=== PATIENT | female | born 1945 | race Caucasian/White ===

== ENCOUNTER 2017-10-22 12:50 | Outpatient (CLI) | payer MEDICARE, BC ==
[2017-10-22] MEDS ORDERED: ISOVUE-370 76%-LOCM 1 ML ONE (15:14)
== END 2017-10-22 12:51 | disposition home or self-care (01) ==
LOC: BICCT 12:50
PROVIDERS: ATTEND Internal Medicine Hematology & Oncology
DX: C22.9 Malignant neoplasm of liver, not specified as primary or secondary (principal); K80.20 Calculus of gallbladder without cholecystitis without obstruction
CPT/HCPCS: 74177; 82565

== ENCOUNTER 2018-07-07 08:46 | Outpatient (CLI) | payer MEDICARE, BC ==
[2018-07-07] MEDS ORDERED: Iopamidol 370 76% 100 ML VIAL ONE (09:00)
[2018-07-07 10:23] LABS: Mean Corpuscular HGB CONC 32.4 g/dL (32.0-36.0); Mean Corpuscular Hemoglobin 31.5 pg (27.0-31.0); Mean Corpuscular Volume 97.2 fL (78.0-98.0); Platelet Count 117 thou/uL (130-400); RBC Distribution Width 14.2 % (11.5-14.5); Red Blood Cell (RBC) Count 4.12 mill/uL (4.20-5.40); White Blood Cell (WBC) Count 5.4 thou/uL (4.8-10.8)
[2018-07-07 10:33] LABS: ALT (SGPT) 13 U/L (8-55); AST (SGOT) 21 U/L (5-34); Albumin 4.2 g/dL (3.4-4.8); Alkaline Phosphatase 115 U/L (40-150); Anion Gap 14 mmol/L (10-20); BUN (Urea Nitrogen) 19 mg/dL (9.8-20.1); Bilirubin, Total 0.4 mg/dL (0.2-1.2); Calc. Creatinine Clearance 0 mL/min (70-130); Calcium 9.9 mg/dL (7.8-10.44); Carbon Dioxide 25 mmol/L (23-31); Chloride 106 mmol/L (98-107); Estimated GFR-MDRD 56; Globulin 2.9 g/dL (2.4-3.5); Glucose 114 mg/dL (83-110); Potassium 5.7 mmol/L (3.5-5.1); Protein, Total 7.1 g/dL (6.0-8.3); Sodium 139 mmol/L (136-145)
--- NOTE | 2018-07-07 14:10 | CT ---
ABDOMEN AND PELVIC CT SCAN WITH IV CONTRAST: Date: 07/07/18 HISTORY: Liver cancer. COMPARISON: 10/22/17. FINDINGS: Small right pleural effusion, slightly larger than on the prior study, with some pleural based parenc hymal changes, probably some atelectasis or pleural thickening. Small hiatal hernia with what appears to be some minimal thickening of the distal esophagus wall, overall stable. Again noted is a large gallstone within the gallbladder, without gallbladder wall thickening or peric holecystic fat stranding. There are some enlarged cesar hepatis lymph nodes, which have heterogeneous attenuation, including some calcifications, although these are stable when compared to the prior josé miguel dy. The visualized pancreas, spleen, and adrenal glands are unremarkable. The kidneys show no hydrone phrosis, or solid or cystic mass. Infraumbilical fat-containing hernia. Prominent panniculus. Colonic diverticulosis without acute diverticulitis. Normal appearing appendix. No retroperitoneal adenopath y. IMPRESSION: Slightly larger right pleural effusion with some pleural based parenchymal changes, probably subsegme ntal atelectasis or chronic change. Stable appearing gallbladder with a large gallstone. Stable appea ring mixed attenuation cesar hepatis adenopathy. Stable small hiatal hernia with some focal thickenin g of the distal esophageal wall. No evidence for metastasis. POS: TPC
== END 2018-07-07 08:47 | disposition home or self-care (01) ==
LOC: SCSCT 08:46
PROVIDERS: ATTEND Internal Medicine Hematology & Oncology
DX: C22.9 Malignant neoplasm of liver, not specified as primary or secondary (principal); J90 Pleural effusion, not elsewhere classified; K80.20 Calculus of gallbladder without cholecystitis without obstruction; R59.0 Localized enlarged lymph nodes; K44.9 Diaphragmatic hernia without obstruction or gangrene; K22.8 Other specified diseases of esophagus; J98.4 Other disorders of lung
CPT/HCPCS: 74177; 80053; 82105; 85027; Q9967

== ENCOUNTER 2018-07-16 12:26 | Outpatient (CLI) | payer MEDICARE, BC ==
[2018-07-16] MEDS ORDERED: Gadobenate Dimeglumine 529 MG/1 ML (20ML VIAL) ONE (15:54)
--- NOTE | 2018-07-16 16:01 | MRI ---
MRI OF THE ABDOMEN WITH AND WITHOUT CONTRAST: INDICATION: History of malignant neoplasm of the liver not specified as primary or secondary. COMPARISON: CT of the abdomen and pelvis dated 07/07/2018 and 10/22/2017. Outside CT images were reviewed from 11/28, 03/28/2015, 07/04/2016, 12/26/2016, and 04/28/2017. TECHNIQUE: Multiplanar, multisequence images were obtained of the abdomen and pelvis with and without contrast u tilizing liver mass protocol. 20 cc of MultiHance was utilized for the examination. FINDINGS: There is dilatation of the common hepatic duct as well as the proximal intrahepatic ducts. There are enhancing nodules seen along the dilated intrahepatic ducts, the largest measuring 1.1 cm on image 3 1 of series 15, within the right common hepatic duct. There is narrowing of the common hepatic duct just above the level of the cystic duct attachment point. There are 2 large gallstones within the ga llbladder. The common bile duct is slightly prominent measuring 7 mm. The main pancreatic duct is a lso mildly prominent measuring up to 2.7 mm within the pancreatic body. The bulky adenopathy in the periportal and portocaval regions is again seen from the comparison CT ev aluations. The portocaval lymph node measures 1.8 cm. The periportal lymph node measures 1.9 cm. T here is mild narrowing of the main portal vein due to the bulky periportal lymphadenopathy. No addit ional focus of adenopathy is evident. The spleen is normal in size measuring up to 10.2 cm. There is a small right pleural effusion with r ight basilar atelectasis. IMPRESSION: 1. Prominent dilatation of the proximal common hepatic duct and hepatic confluence within the centra l aspect of the liver with areas of peripheral nodular enhancement seen within the proximal hepatic d ucts. The extent of the bulky soft tissue prominence seen at the level of the hepatic biliary conflu ence is markedly less than seen on the initial outside CT evaluation dated 11/28/2014. There were bk cifications seen involving these intraluminal nodular lesions on the comparison CT and likely reflect sequelae of treated malignancy, such as a cholangiocarcinoma. There is much more bulky adenopathy s een within the periportal and portocaval regions than seen on the earlier comparison CT examinations suspicious for worsening malignancy lymphadenopathy (stable to most recent CT 07/07/2018). The bulky adenopathy is causing some mass effect on the main portal vein without evidence of intravenous thromb us. 2. Prominent cholelithiasis. 3. Small right pleural effusion and right basilar atelectasis. POS: TPC
== END 2018-07-16 12:27 | disposition home or self-care (01) ==
LOC: SCSMRI 12:26
PROVIDERS: ATTEND Internal Medicine Hematology & Oncology
DX: C22.9 Malignant neoplasm of liver, not specified as primary or secondary (principal); R77.2 Abnormality of alphafetoprotein; R59.0 Localized enlarged lymph nodes; K80.20 Calculus of gallbladder without cholecystitis without obstruction; J90 Pleural effusion, not elsewhere classified; J98.11 Atelectasis; K76.9 Liver disease, unspecified
CPT/HCPCS: 74183; A9577

== ENCOUNTER 2018-08-18 18:10 | Inpatient (IN) | payer MEDICARE, BC ==
[2018-08-18] MEDS ORDERED: Aspirin Chewable 81 MG TAB ONE (18:43)
[2018-08-18 18:54] LABS: Band 3 % (5-11); Eosinophils 4 % (0-10); Hemoglobin 12.3 g/dL (12.0-16.0); Lymphocytes 12 % (21-51); MDiff Complete? YES; Mean Corpuscular HGB CONC 33.6 g/dL (32.0-36.0); Mean Corpuscular Hemoglobin 32.7 pg (27.0-31.0); Mean Corpuscular Volume 97.3 fL (78.0-98.0); Monocytes 4 % (0-10); Neutrophil 72 % (42-75); Platelet Count 195 thou/uL (130-400); Platelet Morphology Comment Appears Adequate; RBC Distribution Width 15.5 % (11.5-14.5); Reactive Lymphocytes 5 % (0-10); Red Blood Cell (RBC) Count 3.76 mill/uL (4.20-5.40); White Blood Cell (WBC) Count 6.5 thou/uL (4.8-10.8)
[2018-08-18 19:05] LABS: ALT (SGPT) 15 U/L (8-55); AST (SGOT) 23 U/L (5-34); Alkaline Phosphatase 136 U/L (40-150); Anion Gap 18 mmol/L (10-20); BUN (Urea Nitrogen) 14 mg/dL (9.8-20.1); Bilirubin, Total 0.5 mg/dL (0.2-1.2); Calc. Creatinine Clearance 0 mL/min (70-130); Calcium 9.7 mg/dL (7.8-10.44); Carbon Dioxide 22 mmol/L (23-31); Chloride 104 mmol/L (98-107); Estimated GFR-MDRD 57; Globulin 3.1 g/dL (2.4-3.5); Glucose 158 mg/dL (83-110); Lipase 39 U/L (8-78); Potassium 4.5 mmol/L (3.5-5.1); Protein, Total 7.1 g/dL (6.0-8.3); Sodium 139 mmol/L (136-145)
--- NOTE | 2018-08-18 19:22 | RAD ---
SEMIUPRIGHT CHEST ONE VIEW: 08/18/18 HISTORY: Elevated heart rate. FINDINGS: Postop midline sternotomy and TAVR. Minimal cardiomegaly. Mild bilateral vascular congestion. Probable small pleural effusions. No conflu ent pneumonia. IMPRESSION: Minimal cardiomegaly and bilateral vascular congestion and small bilateral pleural effusions. Postop changes. Certainly minimal or early congestive heart failure is a consideration. POS: OFF
[2018-08-18] MEDS ORDERED: Diltiazem 125 MG/25 ML ONE (19:23)
[2018-08-18 21:08] VITALS: BMI 43.2
[2018-08-19] MEDS ORDERED: Acetaminophen 325 MG TAB PO PRN (00:31)
[2018-08-19] MEDS ORDERED: Acetaminophen 650 MG Suppository PR PRN (00:31)
[2018-08-19] MEDS ORDERED: Ondansetron ODT 4 MG TAB PO PRN (00:31)
[2018-08-19] MEDS ORDERED: Ondansetron PF 4 MG/2 ML Vial IVP PRN (00:31)
[2018-08-19] MEDS ORDERED: Dextrose 50% Abboject 50 ML SYRINGE SLOW IVP PRN (00:34)
[2018-08-19] MEDS ORDERED: Dextrose 5% in Water 1,000 ML IV PRN (00:34)
[2018-08-19] MEDS ORDERED: HumaLOG 300 UNITS/3 ML VIAL SC PRN (00:34)
--- NOTE | 2018-08-19 01:54 | HP ---
CODE STATUS: Full code. TIME OF EVALUATION: 10:00 p.m. PRIMARY CARE DOCTOR: Nova Yin MD CHIEF COMPLAINT: "My heart is racing." HISTORY OF PRESENT ILLNESS: This is a 72-year-old female patient with past medical history of valvular heart disease status post mitral valve replacement. Also, diabetes, hypertension, liver cancer, treated with chemo. The patient came to the hospital after having an episode of irregular heartbeats. She feels that her heart was racing. Symptoms were associated with no significant symptoms. Symptoms have been present since Friday, on and off. She checked her pulse with her machine at home and she noticed it was always above 120, so she decided to come to the hospital. The patient reported that Dr. Kaiser is her shot examiner and her primary care doctor has stopped some blood pressure medications. No clear triggers, no alleviating factors. REVIEW OF SYSTEMS: CONSTITUTIONAL: No fever, chills, or generalized weakness. RESPIRATORY: No cough, sputum production, or shortness of breath. CARDIOVASCULAR: No chest pain. The patient reported palpitation. GASTROINTESTINAL: No nausea, no vomiting, diarrhea, or abdominal pain. CENTRAL NERVOUS SYSTEM: No dizziness, headache, or feeling lightheaded. GENITOURINARY: No burning on urination. EXTREMITIES: No leg swelling. All other systems were reviewed and negative except for the findings mentioned above. PAST MEDICAL HISTORY: Positive for the findings mentioned in HPI. PAST SURGICAL HISTORY: Positive for hysterectomy and valve replacement. PSYCHIATRIC HISTORY: No previous psych history. SOCIAL HISTORY: The patient drinks socially. No drug use. She is a former tobacco user, quit smoking more than 10 years ago. KNOWN ALLERGIES: Penicillin. REPORTED MEDICATIONS: 1. Allopurinol. 2. Aspirin. 3. Ferrous sulfate. 4. Simvastatin. 5. Vitamin B12. 6. Vitamin D3. PHYSICAL EXAMINATION: VITAL SIGNS: On presentation, blood pressure 161/124 with heart rate 124, respiratory rate was 21. Her oxygen saturation 92 on room air. GENERAL APPEARANCE: The patient is alert, oriented, not in acute distress. HEENT: Eyes, normal conjunctivae. Moist oral mucosa. Anicteric. No JVD. RESPIRATORY: Bilateral air entry. No rales. No wheezes. Symmetric expansion. CARDIOVASCULAR: The patient has irregular rate and rhythm at the rate of 120. No murmurs. No gallops. No edema. ABDOMEN: Soft. Normal bowel sounds. MUSCULOSKELETAL: Baseline range of motion and strength. No tenderness. SKIN: Warm, intact. No pallor. No rash. No redness. Peripheral pulses are present. Capillary refill seems to be intact. NEUROLOGIC: No evidence of any new focal weakness. Cranial nerves seem to be intact. PSYCHIATRY: The patient is in good mood. No anxiety. Optimal judgment. DIAGNOSTIC DATA: EKG was reviewed. The patient has atrial flutter with a rate of 125 with no ectopics, 2:1 AV conduction, complete LBBB. There is no previous EKG to compare. Chest x-ray was reviewed. The patient has minimal cardiomegaly and bilateral vascular congestion with small bilateral pleural effusion. Postop change is certainly minimal, early congestive heart failure is a consideration. LABORATORY DATA: Reviewed. The patient has white count 6.5, hemoglobin 12.3, MCV 97.3, platelet count 195, neutrophils 72. Chemistry; sodium 139, potassium 4.5, carbon dioxide 22, anion gap of 18, BUN 14, creatinine 0.96, GFR of 57, and glucose 158, . Total bilirubin 0.5, AST 23, ALT 15, alkaline phosphatase is 136. Troponin was negative. Beta-natriuretic peptide 364.5. Lipase 39. ASSESSMENT AND PLAN: The patient will be placed in the hospital with the following medical problems: 1. New onset atrial flutter. Dr. Kaiser will be consulted. The patient is receiving Cardizem drip. Reconcile home medications. 2. History of hypertension. Reconcile home medications, as of now is controlled. The patient is already receiving Cardizem. 3. Hyperlipidemia. Low-cholesterol diet is advised. Continue simvastatin. 4. Deep venous thrombosis prophylaxis. Job ID: [id number]
[2018-08-19] MEDS ORDERED: Calcium Carbonate 500 MG ChewTAB PO PRN (06:15)
[2018-08-19] MEDS ORDERED: Zolpidem Tartrate 5 MG TAB PO PRN (06:15)
[2018-08-19] MEDS ORDERED: Sodium Chloride 0.65% Nasal 44 ML BOT EA NARE PRN (06:15)
[2018-08-19] MEDS ORDERED: Bisacodyl 5 MG TAB PO PRN (06:15)
[2018-08-19] MEDS ORDERED: Diabetic Tussin 200 MG/10 ML UDCUP PO PRN (06:15)
[2018-08-19] MEDS ORDERED: Labetalol HCl 100 MG/20 ML VIAL SLOW IVP PRN (06:15)
[2018-08-19] MEDS ORDERED: Cepastat Lozenges 1 LOZ PO PRN (06:15)
[2018-08-19] MEDS ORDERED: Loratadine 10 MG TAB PO PRN (06:15)
[2018-08-19] MEDS ORDERED: Loperamide HCl 2 MG CAP PO PRN (06:15)
[2018-08-19] MEDS ORDERED: Senokot S 8.6-50 MG TAB PO PRN (06:15)
[2018-08-19 07:47] LABS: #Eosinphils 0.1 thou/uL (0.0-0.7); #Lymphocytes 0.8 thou/uL (1.20-3.40); #Monocytes 0.4 thou/uL (0.11-0.59); #Neutrophils 4.3 thou/uL (1.40-6.50); %Basophils 0.5 % (0.0-1.0); %Eosinophils 2.5 % (0.0-10.0); %Lymphocytes 14.5 % (21.0-51.0); %Neutrophils 75.5 % (42.0-75.0); Mean Corpuscular HGB CONC 33.6 g/dL (32.0-36.0); Mean Corpuscular Hemoglobin 33.5 pg (27.0-31.0); Mean Corpuscular Volume 99.7 fL (78.0-98.0); Mean Platelet Volume 8.4 fL (7.4-10.4); Platelet Count 159 thou/uL (130-400); RBC Distribution Width 14.3 % (11.5-14.5); Red Blood Cell (RBC) Count 3.56 mill/uL (4.20-5.40); White Blood Cell (WBC) Count 5.7 thou/uL (4.8-10.8)
[2018-08-19 08:07] LABS: Anion Gap 13 mmol/L (10-20); BUN (Urea Nitrogen) 13 mg/dL (9.8-20.1); Calc. Creatinine Clearance 104 mL/min (70-130); Calcium 9.3 mg/dL (7.8-10.44); Carbon Dioxide 24 mmol/L (23-31); Chloride 105 mmol/L (98-107); Estimated GFR-MDRD 66; Glucose 114 mg/dL (83-110); Sodium 138 mmol/L (136-145)
[2018-08-19] MEDS ORDERED: Enoxaparin Sodium 40 MG/0.4 ML SYRINGE SC SCH (09:00)
[2018-08-19] MEDS: Diltiazem HCl 125 MG, Admixture Fee 1 EACH in Sodium Chloride 0.9% 100 ML IVPB SCH ×2 (10:08→21:32)
[2018-08-19] MEDS: Ferrous Sulfate 325 MG TAB PO SCH (11:31)
[2018-08-19] MEDS: Aspirin Chewable 81 MG TAB PO SCH (11:31)
[2018-08-19] MEDS: Cyanocobalamin (Vitamin B-12) 1,000 MCG TAB PO SCH (11:31)
[2018-08-19] MEDS: Allopurinol 100 MG TAB PO SCH (11:31)
[2018-08-19] MEDS: Magnesium Oxide 400 MG TAB PO SCH (11:31)
--- NOTE | 2018-08-19 13:55 | PDOC.PN ---
- Subjective Encounter Start Date: 08/19/18 Encounter Start Time: 07:30 -: old records requested/rev Patient seen and examined. No new complaints. No overnight events - Objective Resuscitation Status - Order Detail: 08/19/18 00:31 Resuscitation Status Routine Resuscitation Status: FULL: Full Resuscitation MAR Reviewed: Yes Vital Signs & Weight: Vital Signs (12 hours) Temp Pulse Resp BP BP Pulse Ox 08/19/18 11:00 99.1 F 95 92 H 135/82 92 L 08/19/18 07:52 93 L 08/19/18 07:43 98.5 F 87 18 134/72 90 L 08/19/18 04:14 97.5 F L 81 20 111/58 L 93 L Weight Weight 243 lb 3.2 oz I&O: 08/18/18 08/19/18 08/20/18 06:59 06:59 06:59 Intake Total 331.9 Output Total 600 Balance -268.1 Result Diagrams: 08/19/18 07:38 08/19/18 07:38 Additional Labs: Accuchecks 08/19/18 08/19/18 10:45 05:20 POC Glucose 134 H 122 H Radiology Reviewed by me: Yes (chest xray reviewed) EKG Reviewed by me: Yes (afib/flutter) Phys Exam - Physical Examination Constitutional: NAD HEENT: PERRLA, moist MMs, sclera anicteric Neck: no JVD, supple Respiratory: no wheezing, no rhonchi basal rales Cardiovascular: no significant murmur, irregular Gastrointestinal: soft, non-tender, no distention, positive bowel sounds obesity+ Musculoskeletal: no edema, pulses present Neurological: non-focal, normal sensation, moves all 4 limbs Lymphatic: no nodes Psychiatric: normal affect, A&O x 3 Skin: no rash, normal turgor Dx/Plan (1) New onset atrial flutter Code(s): I48.92 - UNSPECIFIED ATRIAL FLUTTER Status: Acute Comment: with RVR , on cardizem drip, [id number] score 3-4 (2) Dyslipidemia Code(s): E78.5 - HYPERLIPIDEMIA, UNSPECIFIED Status: Chronic (3) Gout Code(s): M10.9 - GOUT, UNSPECIFIED Status: Chronic (4) Hypertension Code(s): I10 - ESSENTIAL (PRIMARY) HYPERTENSION Status: Chronic (5) Morbid obesity with BMI of 40.0-44.9, adult Code(s): E66.01 - MORBID (SEVERE) OBESITY DUE TO EXCESS CALORIES; Z68.41 - BODY MASS INDEX (BMI) 40.0-44.9, ADULT Status: Chronic (6) Diabetes type 2, controlled Code(s): E11.9 - TYPE 2 DIABETES MELLITUS WITHOUT COMPLICATIONS Status: Chronic Comment: diet controlled (7) Chronic stage c diastolic heart failure Code(s): I50.32 - CHRONIC DIASTOLIC (CONGESTIVE) HEART FAILURE Status: Chronic (8) H/O mitral valve replacement Code(s): Z95.2 - PRESENCE OF PROSTHETIC HEART VALVE Status: Chronic - Plan cont current plan of care, plan discussed w/ family * continue cardizem drip for rate control * start lovenox 1 mg/kg sc bid * cardiology consulted * will get echo * will give one dose of lasix * home medication reconciled * medication reviewed as below * symptomatic treatment. Review of Systems - Review of Systems ENT: negative: Ear Pain, Ear Discharge, Nose Pain, Nose Discharge, Nose Congestion, Mouth Pain, Mouth Swelling, Throat Pain, Throat Swelling, Other Respiratory: SOB with Excertion. negative: Cough, Dry, Shortness of Breath, Hemoptysis, Pleuritic Pain, Sputum, Wheezing Cardiovascular: negative: chest pain, palpitations, orthopnea, paroxysmal nocturnal dyspnea, edema, light headedness, other Gastrointestinal: negative: Nausea, Vomiting, Abdominal Pain, Diarrhea, Constipation, Melena, Hematochezia, Other Genitourinary: negative: Dysuria, Frequency, Incontinence, Hematuria, Retention , Other Musculoskeletal: negative: Neck Pain, Shoulder Pain, Arm Pain, Back Pain, Hand Pain, Leg Pain, Foot Pain, Other Skin: negative: Rash, Lesions, Lenny, Bruising, Other - Medications/Allergies Allergies/Adverse Reactions: Allergies Allergy/AdvReac Type Severity Reaction Status Date / Time Penicillins Allergy Verified 08/18/18 23:08 Medications: Current Medications Acetaminophen (Tylenol) 650 mg PO Q4H PRN PRN Reason: Headache/Fever/Mild Pain (1-3) Acetaminophen (Tylenol) 650 mg SC Q4H PRN PRN Reason: Headache/Fever/Mild Pain (1-3) Allopurinol (Zyloprim) 100 mg PO DAILY [facility] Last Admin: 08/19/18 11:31 Dose: 100 mg Aspirin (Aspirin Chewable) 81 mg PO DAILY [facility] Last Admin: 08/19/18 11:31 Dose: 81 mg Atorvastatin Calcium (Lipitor) 10 mg PO HS [facility] Bisacodyl (Dulcolax) 10 mg PO DAILYPRN PRN PRN Reason: Constipation Calcium Carbonate (Tums) 1,000 mg PO Q4H PRN PRN Reason: Heartburn or Indigestion Cholecalciferol (Vitamin D3) 2,000 units PO DAILY [facility] Last Admin: 08/19/18 11:31 Dose: 2,000 units Cyanocobalamin (Vitamin B-12) 1,000 mcg PO DAILY [facility] Last Admin: 08/19/18 11:31 Dose: 1,000 mcg Dextrose/Water (Dextrose 50%) 25 gm SLOW IVP PRN PRN PRN Reason: Hypoglycemia Enoxaparin Sodium (Lovenox) 40 mg SC 0900 [facility] Last Admin: 08/19/18 08:55 Dose: 40 mg Ferrous Sulfate (Feosol) 325 mg PO DAILY [facility] Last Admin: 08/19/18 11:31 Dose: 325 mg Furosemide (Lasix) 40 mg SLOW IVP ONE [facility] Stop: 08/19/18 15:00 Glucagon (Glucagon) 1 mg IM PRN PRN PRN Reason: Hypoglycemia Guaifenesin (Robitussin Sf) 200 mg PO Q4H PRN PRN Reason: Cough Diltiazem HCl 125 mg/Miscellaneous Medication 1 each/ Sodium Chloride 125 mls @ 10 mls/hr IVPB INF [facility]; Protocol Last Admin: 08/19/18 10:08 Dose: 125 mls Dextrose/Water (D5w) 1,000 mls @ 0 mls/hr IV .Q0M PRN PRN Reason: Hypoglycemia Insulin Human Lispro (Humalog) 0 units SC .MILD SLIDING SCALE PRN PRN Reason: Mild Correctional Scale Labetalol HCl (Normodyne) 20 mg SLOW IVP Q4H PRN PRN Reason: SBP > 180 and HR >/= 70 Loperamide HCl (Imodium) 2 mg PO PRN PRN PRN Reason: Diarrhea/Loose Stools Loratadine (Claritin) 10 mg PO DAILYPRN PRN PRN Reason: Sinus Symptoms Magnesium Oxide (Magnesium Oxide) 400 mg PO DAILY [facility] Last Admin: 08/19/18 11:31 Dose: 400 mg Metoprolol Succinate (Toprol Xl) 50 mg PO DAILY [facility] Last Admin: 08/19/18 08:56 Dose: 50 mg Ondansetron HCl (Zofran Odt) 4 mg PO Q6H PRN PRN Reason: Nausea/Vomiting Ondansetron HCl (Zofran) 4 mg IVP Q6H PRN PRN Reason: Nausea/Vomiting Senna/Docusate Sodium (Senokot S) 2 tab PO BID PRN PRN Reason: Constipation Sodium Chloride (Flush - Normal Saline) 10 ml IVF Q12HR [facility] Last Admin: 08/19/18 11:32 Dose: Not Given Sodium Chloride (Flush - Normal Saline) 10 ml IVF PRN PRN PRN Reason: Saline Flush Sodium Chloride (Ray Nasal [place] 0.65%) 0 ml EA NARE QIDPRN PRN PRN Reason: Nasal Congestion Throat Lozenges (Cepastat Lozenges) 1 tony PO Q2H PRN PRN Reason: Sore Throat Zolpidem Tartrate (Ambien) 5 mg PO HSPRN PRN PRN Reason: Insomnia
[2018-08-19] MEDS ORDERED: Furosemide 40 MG/4 ML VIAL SLOW IVP SCH (14:00)
[2018-08-19] MEDS: Enoxaparin Sodium 120 MG/0.8 ML SYRINGE SC SCH (20:17)
[2018-08-19] MEDS: Atorvastatin Calcium 10 MG TAB PO SCH (20:17)
--- NOTE | 2018-08-19 21:13 | CON ---
DATE OF CONSULTATION: INDICATION FOR CONSULTATION: This is a 72-year-old female who I saw back in the office in April of this year. She has a rather extensive past medical history, which includes a mitral valve replacement and then she had a redo replacement using a TMVR procedure. She was implanted with a 29 mm bovine Guy valve using TMVR procedure. She has been doing very well as far as her valve replacement. She has been doing very well since that time, but she last Friday noticed that she was having some palpitations, was seen by a physician, was noted the heart rate was somewhat fast and irregular. She then presented yesterday evening to the emergency room, was found to be in atrial flutter with a rapid ventricular response with a heart rate in the 120s and she was started on IV diltiazem. The heart rate is under better control. Using a mild carotid massage, the ventricular response decreased and there are very obvious flutter waves. She has been relatively asymptomatic with the flutter however and now that the rate is under better control. She also has a history of liver cancer and has been noted to have possibly some lymph nodes outside the liver area, which are being evaluated , but otherwise has been doing quite well. She drives quite a bit in the [place] with her sisters. She recently drove herself to [place], [place]. She has also driven to [place] by herself and has been doing overall very well. PAST MEDICAL HISTORY: Significant for hypertension, hypercholesterolemia, type 2 diabetes, liver cancer. She has a bioprosthetic mitral valve. She has a history of anemia in the past. She also recently was diagnosed with hyperkalemia, this is improved after she was given Lasix. REVIEW OF SYSTEMS: A 12-point review of systems unremarkable except for what was noted in the history of present illness. MEDICATIONS: Prior to admission: 1. Metoprolol succinate 25 mg once a day. 2. Ferrous sulfate 325 mg once a day. 3. Benadryl as needed. 4. Aleve as needed. 5. Losartan potassium 25 mg once a day, this has been held due to hyperkalemia. 6. Simvastatin 20 mg once a day. 7. Spironolactone 25 mg a day. 8. Allopurinol 100 mg daily. 9. Magnesium oxide 400 mg once a day. 10. Vitamin D3. 11. Aspirin 81 mg a day. 12. Torsemide 20 mg once a day and p.r.n. as needed for lower extremity edema. 13. Colchicine 0.6 mg tablets every 4 hours as needed. 14. Gabapentin 300 mg 3 times a day. ALLERGIES: NO KNOWN DRUG ALLERGIES AT THIS TIME. FAMILY HISTORY: Unremarkable. SOCIAL HISTORY: No history of alcohol or tobacco abuse. She lives alone. PHYSICAL EXAMINATION: GENERAL: Reveals a well-developed, well-nourished female, who is in no acute distress. She is alert. She is oriented. She is very pleasant. VITAL SIGNS: Blood pressure is 135/82, heart rate is anywhere between 80 to 95 and has underlying atrial flutter, respiratory rate is 18, and temperature is 99.1, earlier today was 98.5. HEENT: Shows the head to be normocephalic and atraumatic. Carotid pulses are present. There were no bruits. CHEST: Clear to auscultation without rales, rhonchi, or wheezing. CARDIOVASCULAR: Reveals a regular rate and rhythm with a normal S1 and S2. There were no significant murmurs, heaves, thrills, bruits, or rubs. ABDOMEN: Shows obesity. Positive bowel sounds. Well-healed surgical incisions. I did not hear any other significant abnormalities. EXTREMITIES: Show no clubbing, cyanosis, or edema at this time. Pedal pulses are present. NEUROLOGIC: She appears to be fully intact. SKIN: Warm and dry. LABORATORY DATA: WBC of 5.7, hemoglobin 12, platelet count was 159,000. Her sodium was 138, with 4.0 potassium. BUN was 13 with a creatinine of 0.84. Blood sugar was 114. Her BNP was 364. IMPRESSION: 1. New onset atrial flutter. We will advise her to seek consultation with the ged instructor and possible ablation is most likely the best care for the patient to control the atrial flutter. At this time, the rate is under relatively good control with IV diltiazem. We will continue this medicine for now. 2. History of liver carcinoma. She has been followed by Dr. Rubio. She has had some lymph nodes noted, but at this time otherwise apparently has been doing quite well with her history of liver cancer, which she has undergone treatment in the past. There has been no indication otherwise that she has any metastasis that I am aware of. 3. Type 2 diabetes. She is doing very well on the present medications. 4. History of hypertension. This is also under good control at this time. We will continue her medications. At this time, the most pertinent problem is her atrial flutter and this will be dealt with hopefully by the ged instructor and most likely, she will need to undergo an ablation. At this time, I would agree with the subcu Rennycatracho as she may need to undergo a transesophageal echocardiogram prior to an ablation of the atrial flutter. At this time, the main goal will be to control the heart rate and to continue the anticoagulation. 5. s/p MVR. stable by echo. Job ID: [id number] [facility]
[2018-08-20] MEDS: Cyanocobalamin (Vitamin B-12) 1,000 MCG TAB PO SCH (09:20)
[2018-08-20] MEDS: Ferrous Sulfate 325 MG TAB PO SCH (09:20)
[2018-08-20] MEDS: Aspirin Chewable 81 MG TAB PO SCH (09:21)
[2018-08-20] MEDS: Enoxaparin Sodium 120 MG/0.8 ML SYRINGE SC SCH ×2 (09:21→20:41)
[2018-08-20] MEDS: Allopurinol 100 MG TAB PO SCH (09:21)
[2018-08-20] MEDS: Magnesium Oxide 400 MG TAB PO SCH (09:21)
--- NOTE | 2018-08-20 10:08 | PDOC.CTH ---
Cardiology Progress Note - Subjective The pt seen and examined. No overnight events. No cardiac complaints. - Objective Vital Signs Temp Pulse Resp BP BP Pulse Ox 08/20/18 07:45 98.3 F 81 18 134/68 92 L 08/20/18 03:35 98.4 F 77 20 109/59 L 94 L Weight 243 lb 08/19/18 08/20/18 08/21/18 06:59 06:59 06:59 Intake Total 331.9 1507 Output Total 600 2000 Balance -268.1 -493 - Physical Examination General/Neuro: alert & oriented x3 Neck: no JVD present Lungs: CTA Heart: other: (irregular) Abdomen: soft Extremities: other: (no edema) - Telemetry Telemetry Rhythm: Afib with HR 80s - Labs Result Diagrams: 08/20/18 13:32 08/20/18 13:32 Troponin/CKMB Troponin I 0.010 ng/mL (< 0.028) 08/18/18 18:41 - Assessment/Plan 1. New onset Atrial flutter with RVR - well controlled HR with Diltiazem 10mg/h and Metoprolol XL 50mg qd; on Lovenox BID and ASA 81mg qd; plan for YVONNE and Aflutter RFA tomorrow 2. HTN - stable 3. DM type 2 - 4. Anemia - on Iron supplement 5. Hx of Liver Cancer with chemo - 6. Hx of Bioprosthetic MV replacement - Echo was done today and the result is pending at this moment. 7. HLD - 8. Obese - MAR reviewed Pt. seen and eval. by me.I agree with the A/P by the DATA SYSTEMS MANAGER. She remains in atrial flutter. Plan for YVONNE and possible ablation in AM. chest clear. no significant edema. Irreg. Review of Systems - Review of Systems Constitutional: reports: no symptoms reported EENTM: reports: no symptoms reported Respiratory: reports: no symptoms reported Cardiac (ROS): reports: no symptoms reported ABD/GI: reports: no symptoms reported : reports: no symptoms reported Musculoskeletal: reports: no symptoms reported
--- NOTE | 2018-08-20 11:38 | PDOC.PN ---
- Subjective Encounter Start Date: 08/20/18 Encounter Start Time: 08:00 Patient seen and examined. No new complaints. No overnight events pt is on cardizem drip - Objective Resuscitation Status - Order Detail: 08/19/18 00:31 Resuscitation Status Routine Resuscitation Status: FULL: Full Resuscitation MAR Reviewed: Yes Vital Signs & Weight: Vital Signs (12 hours) Temp Pulse Resp BP BP Pulse Ox 08/20/18 07:45 98.3 F 81 18 134/68 92 L 08/20/18 03:35 98.4 F 77 20 109/59 L 94 L Weight Weight 243 lb I&O: 08/19/18 08/20/18 08/21/18 06:59 06:59 06:59 Intake Total 331.9 1507 Output Total 600 2000 Balance -268.1 -493 Result Diagrams: 08/19/18 07:38 08/19/18 07:38 Additional Labs: Accuchecks 08/20/18 08/20/18 08/19/18 10:39 05:23 20:33 POC Glucose 167 H 132 H 164 H 08/19/18 16:40 POC Glucose 142 H EKG Reviewed by me: Yes (aflutter) Phys Exam - Physical Examination Constitutional: NAD HEENT: PERRLA, moist MMs, sclera anicteric Neck: no JVD, supple Respiratory: no wheezing, no rales, no rhonchi Cardiovascular: no significant murmur, irregular Gastrointestinal: soft, non-tender, no distention, positive bowel sounds obesity+ Musculoskeletal: no edema, pulses present Neurological: non-focal, normal sensation, moves all 4 limbs Lymphatic: no nodes Psychiatric: normal affect, A&O x 3 Skin: no rash, normal turgor Dx/Plan (1) New onset atrial flutter Code(s): I48.92 - UNSPECIFIED ATRIAL FLUTTER Status: Acute Comment: with RVR , on cardizem drip, [id number] score 3-4 (2) Dyslipidemia Code(s): E78.5 - HYPERLIPIDEMIA, UNSPECIFIED Status: Chronic (3) Gout Code(s): M10.9 - GOUT, UNSPECIFIED Status: Chronic (4) Hypertension Code(s): I10 - ESSENTIAL (PRIMARY) HYPERTENSION Status: Chronic (5) Morbid obesity with BMI of 40.0-44.9, adult Code(s): E66.01 - MORBID (SEVERE) OBESITY DUE TO EXCESS CALORIES; Z68.41 - BODY MASS INDEX (BMI) 40.0-44.9, ADULT Status: Chronic (6) Diabetes type 2, controlled Code(s): E11.9 - TYPE 2 DIABETES MELLITUS WITHOUT COMPLICATIONS Status: Chronic Comment: diet controlled (7) Chronic stage c diastolic heart failure Code(s): I50.32 - CHRONIC DIASTOLIC (CONGESTIVE) HEART FAILURE Status: Chronic (8) H/O mitral valve replacement Code(s): Z95.2 - PRESENCE OF PROSTHETIC HEART VALVE Status: Chronic - Plan cont current plan of care * continue cardizem drip with Toprol XL * continue lovenox * tomorrow YVONNE and RFA for aflutter * medication reviewed as below * symptomatic treatment. * echo result pending Review of Systems - Review of Systems ENT: negative: Ear Pain, Ear Discharge, Nose Pain, Nose Discharge, Nose Congestion, Mouth Pain, Mouth Swelling, Throat Pain, Throat Swelling, Other Respiratory: negative: Cough, Dry, Shortness of Breath, Hemoptysis, SOB with Excertion, Pleuritic Pain, Sputum, Wheezing Cardiovascular: negative: chest pain, palpitations, orthopnea, paroxysmal nocturnal dyspnea, edema, light headedness, other Gastrointestinal: negative: Nausea, Vomiting, Abdominal Pain, Diarrhea, Constipation, Melena, Hematochezia, Other Genitourinary: negative: Dysuria, Frequency, Incontinence, Hematuria, Retention , Other Musculoskeletal: negative: Neck Pain, Shoulder Pain, Arm Pain, Back Pain, Hand Pain, Leg Pain, Foot Pain, Other Skin: negative: Rash, Lesions, Lenny, Bruising, Other - Medications/Allergies Allergies/Adverse Reactions: Allergies Allergy/AdvReac Type Severity Reaction Status Date / Time Penicillins Allergy Verified 08/18/18 23:08 Medications: Current Medications Acetaminophen (Tylenol) 650 mg PO Q4H PRN PRN Reason: Headache/Fever/Mild Pain (1-3) Acetaminophen (Tylenol) 650 mg [place] Q4H PRN PRN Reason: Headache/Fever/Mild Pain (1-3) Allopurinol (Zyloprim) 100 mg PO DAILY [facility] Last Admin: 08/20/18 09:21 Dose: 100 mg Aspirin (Aspirin Chewable) 81 mg PO DAILY [facility] Last Admin: 08/20/18 09:21 Dose: 81 mg Atorvastatin Calcium (Lipitor) 10 mg PO HS [facility] Last Admin: 08/19/18 20:17 Dose: 10 mg Bisacodyl (Dulcolax) 10 mg PO DAILYPRN PRN PRN Reason: Constipation Calcium Carbonate (Tums) 1,000 mg PO Q4H PRN PRN Reason: Heartburn or Indigestion Cholecalciferol (Vitamin D3) 2,000 units PO DAILY [facility] Last Admin: 08/20/18 09:20 Dose: 2,000 units Cyanocobalamin (Vitamin B-12) 1,000 mcg PO DAILY [facility] Last Admin: 08/20/18 09:20 Dose: 1,000 mcg Dextrose/Water (Dextrose 50%) 25 gm SLOW IVP PRN PRN PRN Reason: Hypoglycemia Enoxaparin Sodium (Lovenox) 110 mg SC 0900,2099 [facility] Last Admin: 08/20/18 09:21 Dose: 110 mg Ferrous Sulfate (Feosol) 325 mg PO DAILY [facility] Last Admin: 08/20/18 09:20 Dose: 325 mg Glucagon (Glucagon) 1 mg IM PRN PRN PRN Reason: Hypoglycemia Guaifenesin (Robitussin Sf) 200 mg PO Q4H PRN PRN Reason: Cough Diltiazem HCl 125 mg/Miscellaneous Medication 1 each/ Sodium Chloride 125 mls @ 10 mls/hr IVPB INF [facility]; Protocol Last Admin: 08/19/18 21:32 Dose: 125 mls Dextrose/Water (D5w) 1,000 mls @ 0 mls/hr IV .Q0M PRN PRN Reason: Hypoglycemia Insulin Human Lispro (Humalog) 0 units SC .MILD SLIDING SCALE PRN PRN Reason: Mild Correctional Scale Labetalol HCl (Normodyne) 20 mg SLOW IVP Q4H PRN PRN Reason: SBP > 180 and HR >/= 70 Loperamide HCl (Imodium) 2 mg PO PRN PRN PRN Reason: Diarrhea/Loose Stools Loratadine (Claritin) 10 mg PO DAILYPRN PRN PRN Reason: Sinus Symptoms Magnesium Oxide (Magnesium Oxide) 400 mg PO DAILY [facility] Last Admin: 08/20/18 09:21 Dose: 400 mg Metoprolol Succinate (Toprol Xl) 50 mg PO DAILY [facility] Last Admin: 08/20/18 09:25 Dose: 50 mg Ondansetron HCl (Zofran Odt) 4 mg PO Q6H PRN PRN Reason: Nausea/Vomiting Ondansetron HCl (Zofran) 4 mg IVP Q6H PRN PRN Reason: Nausea/Vomiting Senna/Docusate Sodium (Senokot S) 2 tab PO BID PRN PRN Reason: Constipation Sodium Chloride (Flush - Normal Saline) 10 ml IVF Q12HR [facility] Last Admin: 08/20/18 09:26 Dose: Not Given Sodium Chloride (Flush - Normal Saline) 10 ml IVF PRN PRN PRN Reason: Saline Flush Sodium Chloride ([place] Nasal [place] 0.65%) 0 ml EA NARE QIDPRN PRN PRN Reason: Nasal Congestion Throat Lozenges (Cepastat Lozenges) 1 tony PO Q2H PRN PRN Reason: Sore Throat Zolpidem Tartrate (Ambien) 5 mg PO HSPRN PRN PRN Reason: Insomnia
[2018-08-20] MEDS: Diltiazem HCl 125 MG, Admixture Fee 1 EACH in Sodium Chloride 0.9% 100 ML IVPB SCH (11:45)
[2018-08-20 13:43] LABS: #Eosinphils 0.1 thou/uL (0.0-0.7); #Lymphocytes 0.8 thou/uL (1.20-3.40); #Monocytes 0.4 thou/uL (0.11-0.59); #Neutrophils 4.3 thou/uL (1.40-6.50); %Basophils 0.6 % (0.0-1.0); %Lymphocytes 14.3 % (21.0-51.0); %Monocytes 7.3 % (0.0-10.0); %Neutrophils 75.7 % (42.0-75.0); Hemoglobin 11.9 g/dL (12.0-16.0); Mean Corpuscular HGB CONC 34.3 g/dL (32.0-36.0); Mean Corpuscular Hemoglobin 33.3 pg (27.0-31.0); Mean Corpuscular Volume 96.9 fL (78.0-98.0); Mean Platelet Volume 8.2 fL (7.4-10.4); Platelet Count 164 thou/uL (130-400); RBC Distribution Width 14.4 % (11.5-14.5); Red Blood Cell (RBC) Count 3.57 mill/uL (4.20-5.40); White Blood Cell (WBC) Count 5.7 thou/uL (4.8-10.8)
[2018-08-20 13:59] LABS: Anion Gap 16 mmol/L (10-20); BUN (Urea Nitrogen) 16 mg/dL (9.8-20.1); Calc. Creatinine Clearance 94 mL/min (70-130); Calcium 9.6 mg/dL (7.8-10.44); Carbon Dioxide 25 mmol/L (23-31); Chloride 100 mmol/L (98-107); Estimated GFR-MDRD 59; Glucose 125 mg/dL (83-110); Potassium 3.9 mmol/L (3.5-5.1); Sodium 137 mmol/L (136-145)
[2018-08-20] MEDS: Atorvastatin Calcium 10 MG TAB PO SCH (20:41)
[2018-08-21 06:14] LABS: INR-International Normal Ratio 1.1; Prothrombin Time 13.9 SEC (12.0-14.7)
[2018-08-21 06:15] LABS: #Eosinphils 0.1 thou/uL (0.0-0.7); #Lymphocytes 0.8 thou/uL (1.20-3.40); #Monocytes 0.5 thou/uL (0.11-0.59); #Neutrophils 3.6 thou/uL (1.40-6.50); %Basophils 0.4 % (0.0-1.0); %Eosinophils 2.9 % (0.0-10.0); %Lymphocytes 15.6 % (21.0-51.0); %Monocytes 9.6 % (0.0-10.0); %Neutrophils 71.5 % (42.0-75.0); Hemoglobin 10.9 g/dL (12.0-16.0); Mean Corpuscular HGB CONC 32.8 g/dL (32.0-36.0); Mean Corpuscular Hemoglobin 32.2 pg (27.0-31.0); Mean Corpuscular Volume 98.2 fL (78.0-98.0); Mean Platelet Volume 8.4 fL (7.4-10.4); PTT 37.7 SEC (22.9-36.1); Platelet Count 154 thou/uL (130-400); RBC Distribution Width 14.5 % (11.5-14.5); Red Blood Cell (RBC) Count 3.38 mill/uL (4.20-5.40)
[2018-08-21 06:29] LABS: Anion Gap 12 mmol/L (10-20); BUN (Urea Nitrogen) 15 mg/dL (9.8-20.1); Calc. Creatinine Clearance 94 mL/min (70-130); Calcium 9.3 mg/dL (7.8-10.44); Carbon Dioxide 27 mmol/L (23-31); Chloride 104 mmol/L (98-107); Estimated GFR-MDRD 59; Glucose 125 mg/dL (83-110); Potassium 4.8 mmol/L (3.5-5.1); Sodium 138 mmol/L (136-145)
[2018-08-21] MEDS ORDERED: Diltiazem 125 MG in Sodium Chloride 0.9% 100 ML IVPB PRN (06:46)
[2018-08-21] MEDS: Aspirin Chewable 81 MG TAB PO SCH (08:55)
[2018-08-21] MEDS: Allopurinol 100 MG TAB PO SCH (08:55)
[2018-08-21] MEDS: Ferrous Sulfate 325 MG TAB PO SCH (08:55)
[2018-08-21] MEDS: Magnesium Oxide 400 MG TAB PO SCH (08:56)
[2018-08-21] MEDS: Cyanocobalamin (Vitamin B-12) 1,000 MCG TAB PO SCH (08:56)
[2018-08-21] MEDS: Apixaban 5 MG TAB PO SCH ×2 (08:57→20:23)
--- NOTE | 2018-08-21 10:28 | PDOC.CTH ---
Cardiology Progress Note - Subjective The pt seen and examined. No overnight events. No cardiac complaints. - Objective Vital Signs Temp Pulse Resp BP Pulse Ox 08/21/18 07:29 98.1 F 89 18 139/82 98 08/21/18 04:00 98.3 F 75 16 98/54 L 92 L Weight 243 lb 08/20/18 08/21/18 08/22/18 06:59 06:59 06:59 Intake Total 1507 800 Output Total 2000 650 Balance -493 150 - Physical Examination General/Neuro: alert & oriented x3 Neck: no JVD present Lungs: CTA Heart: other: (irregular) Abdomen: soft Extremities: other: (no edema) - Telemetry Telemetry Rhythm: Afib/aflutter - Labs Result Diagrams: 08/21/18 05:33 08/21/18 05:33 Troponin/CKMB Troponin I 0.010 ng/mL (< 0.028) 08/18/18 18:41 - Assessment/Plan 1. New onset Atrial flutter with RVR - well controlled HR without Diltiazem IV; On Metoprolol XL 50mg qd; on Eliquis 5mg BID from this AM; plan for YVONNE and Aflutter RFA on 08/21/2018 2. HTN - stable 3. DM type 2 - 4. Anemia - on Iron supplement 5. Hx of Liver Cancer with chemo - 6. Hx of Bioprosthetic MV replacement - Echo on 08/20/2018 with normal bioprosthetic Valve. 7. HLD - 8. Obese - MAR reviewed Pt. seen and eval. 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 Chest clear. Plan for Atrial Fluttter ablation after YVONNE if no MERI thrombus. Review of Systems - Review of Systems Constitutional: reports: no symptoms reported EENTM: reports: no symptoms reported Respiratory: reports: no symptoms reported Cardiac (ROS): reports: no symptoms reported ABD/GI: reports: no symptoms reported : reports: no symptoms reported Musculoskeletal: reports: no symptoms reported
--- NOTE | 2018-08-21 10:56 | PDOC.PN ---
- Subjective Encounter Start Date: 08/21/18 Encounter Start Time: 09:45 Patient seen and examined. No new complaints. No overnight events - Objective Resuscitation Status - Order Detail: 08/19/18 00:31 Resuscitation Status Routine Resuscitation Status: FULL: Full Resuscitation MAR Reviewed: Yes Vital Signs & Weight: Vital Signs (12 hours) Temp Pulse Resp BP Pulse Ox 08/21/18 07:29 98.1 F 89 18 139/82 98 08/21/18 04:00 98.3 F 75 16 98/54 L 92 L Weight Weight 243 lb I&O: 08/20/18 08/21/18 08/22/18 06:59 06:59 06:59 Intake Total 1507 800 Output Total 2000 650 Balance -493 150 Result Diagrams: 08/21/18 05:33 08/21/18 05:33 Additional Labs: Accuchecks 08/21/18 08/20/18 08/20/18 05:12 20:41 17:18 POC Glucose 122 H 150 H 146 H 08/20/18 10:39 POC Glucose 167 H EKG Reviewed by me: Yes (aflutter) Phys Exam - Physical Examination Constitutional: NAD HEENT: PERRLA, moist MMs, sclera anicteric Neck: no JVD, supple Respiratory: no wheezing, no rales, no rhonchi Cardiovascular: no significant murmur, irregular Gastrointestinal: soft, non-tender, no distention, positive bowel sounds obesity+ Musculoskeletal: no edema, pulses present Neurological: non-focal, normal sensation, moves all 4 limbs Lymphatic: no nodes Psychiatric: normal affect, A&O x 3 Skin: no rash, normal turgor Dx/Plan (1) New onset atrial flutter Code(s): I48.92 - UNSPECIFIED ATRIAL FLUTTER Status: Acute Comment: with RVR , on cardizem drip, [id number] score 3-4 (2) Dyslipidemia Code(s): E78.5 - HYPERLIPIDEMIA, UNSPECIFIED Status: Chronic (3) Gout Code(s): M10.9 - GOUT, UNSPECIFIED Status: Chronic (4) Hypertension Code(s): I10 - ESSENTIAL (PRIMARY) HYPERTENSION Status: Chronic (5) Morbid obesity with BMI of 40.0-44.9, adult Code(s): E66.01 - MORBID (SEVERE) OBESITY DUE TO EXCESS CALORIES; Z68.41 - BODY MASS INDEX (BMI) 40.0-44.9, ADULT Status: Chronic (6) Diabetes type 2, controlled Code(s): E11.9 - TYPE 2 DIABETES MELLITUS WITHOUT COMPLICATIONS Status: Chronic Comment: diet controlled (7) Chronic stage c diastolic heart failure Code(s): I50.32 - CHRONIC DIASTOLIC (CONGESTIVE) HEART FAILURE Status: Chronic (8) H/O mitral valve replacement Code(s): Z95.2 - PRESENCE OF PROSTHETIC HEART VALVE Status: Chronic - Plan cont current plan of care * today EP study and ablation * plan for discharge tomorrow * medication reviewed as below * symptomatic treatment. Review of Systems - Review of Systems ENT: negative: Ear Pain, Ear Discharge, Nose Pain, Nose Discharge, Nose Congestion, Mouth Pain, Mouth Swelling, Throat Pain, Throat Swelling, Other Respiratory: negative: Cough, Dry, Shortness of Breath, Hemoptysis, SOB with Excertion, Pleuritic Pain, Sputum, Wheezing Cardiovascular: negative: chest pain, palpitations, orthopnea, paroxysmal nocturnal dyspnea, edema, light headedness, other Gastrointestinal: negative: Nausea, Vomiting, Abdominal Pain, Diarrhea, Constipation, Melena, Hematochezia, Other Genitourinary: negative: Dysuria, Frequency, Incontinence, Hematuria, Retention , Other Musculoskeletal: negative: Neck Pain, Shoulder Pain, Arm Pain, Back Pain, Hand Pain, Leg Pain, Foot Pain, Other - Medications/Allergies Allergies/Adverse Reactions: Allergies Allergy/AdvReac Type Severity Reaction Status Date / Time Penicillins Allergy Verified 08/18/18 23:08 Medications: Current Medications Acetaminophen (Tylenol) 650 mg PO Q4H PRN PRN Reason: Headache/Fever/Mild Pain (1-3) Acetaminophen (Tylenol) 650 mg [place] Q4H PRN PRN Reason: Headache/Fever/Mild Pain (1-3) Allopurinol (Zyloprim) 100 mg PO DAILY [facility] Last Admin: 08/21/18 08:55 Dose: 100 mg Apixaban (Eliquis) 5 mg PO BID [facility] Last Admin: 08/21/18 08:57 Dose: 5 mg Aspirin (Aspirin Chewable) 81 mg PO DAILY [facility] Last Admin: 08/21/18 08:55 Dose: 81 mg Atorvastatin Calcium (Lipitor) 10 mg PO HS [facility] Last Admin: 08/20/18 20:41 Dose: 10 mg Bisacodyl (Dulcolax) 10 mg PO DAILYPRN PRN PRN Reason: Constipation Calcium Carbonate (Tums) 1,000 mg PO Q4H PRN PRN Reason: Heartburn or Indigestion Cholecalciferol (Vitamin D3) 2,000 units PO DAILY [facility] Last Admin: 08/21/18 08:55 Dose: 2,000 units Cyanocobalamin (Vitamin B-12) 1,000 mcg PO DAILY [facility] Last Admin: 08/21/18 08:56 Dose: 1,000 mcg Dextrose/Water (Dextrose 50%) 25 gm SLOW IVP PRN PRN PRN Reason: Hypoglycemia Ferrous Sulfate (Feosol) 325 mg PO DAILY [facility] Last Admin: 08/21/18 08:55 Dose: 325 mg Glucagon (Glucagon) 1 mg IM PRN PRN PRN Reason: Hypoglycemia Guaifenesin (Robitussin Sf) 200 mg PO Q4H PRN PRN Reason: Cough Dextrose/Water (D5w) 1,000 mls @ 0 mls/hr IV .Q0M PRN PRN Reason: Hypoglycemia Diltiazem HCl 125 mg/ Sodium (Chloride) 125 mls @ 5 mls/hr IVPB INF PRN; Protocol PRN Reason: for heart rate >110 Insulin Human Lispro (Humalog) 0 units SC .MILD SLIDING SCALE PRN PRN Reason: Mild Correctional Scale Labetalol HCl (Normodyne) 20 mg SLOW IVP Q4H PRN PRN Reason: SBP > 180 and HR >/= 70 Loperamide HCl (Imodium) 2 mg PO PRN PRN PRN Reason: Diarrhea/Loose Stools Loratadine (Claritin) 10 mg PO DAILYPRN PRN PRN Reason: Sinus Symptoms Magnesium Oxide (Magnesium Oxide) 400 mg PO DAILY [facility] Last Admin: 08/21/18 08:56 Dose: 400 mg Metoprolol Succinate (Toprol Xl) 50 mg PO DAILY [facility] Last Admin: 08/21/18 08:56 Dose: 50 mg Ondansetron HCl (Zofran Odt) 4 mg PO Q6H PRN PRN Reason: Nausea/Vomiting Ondansetron HCl (Zofran) 4 mg IVP Q6H PRN PRN Reason: Nausea/Vomiting Senna/Docusate Sodium (Senokot S) 2 tab PO BID PRN PRN Reason: Constipation Sodium Chloride (Flush - Normal Saline) 10 ml IVF Q12HR [facility] Last Admin: 08/21/18 09:00 Dose: 10 ml Sodium Chloride (Flush - Normal Saline) 10 ml IVF PRN PRN PRN Reason: Saline Flush Sodium Chloride ([place] Nasal [place] 0.65%) 0 ml EA NARE QIDPRN PRN PRN Reason: Nasal Congestion Throat Lozenges (Cepastat Lozenges) 1 tony PO Q2H PRN PRN Reason: Sore Throat Zolpidem Tartrate (Ambien) 5 mg PO HSPRN PRN PRN Reason: Insomnia
[2018-08-21] MEDS ORDERED: Propofol 500 MG/50 ML VIAL ONE (12:20)
[2018-08-21] MEDS ORDERED: Heparin 0 ML ONE (12:21)
[2018-08-21] MEDS ORDERED: Diltiazem HCl SR 90 mg Capsule PO SCH (16:00)
[2018-08-21] MEDS: Atorvastatin Calcium 10 MG TAB PO SCH (20:23)
--- NOTE | 2018-08-21 20:28 | ECHO ---
DATE OF PROCEDURE: 08/21/18 INDICATION FOR PROCEDURE: This is a 72-year-old patient who has atrial flutter, was advised to undergo a transesophageal echocardiogram prior to undergoing ablation of the atrial flutter. She was taken to the recovery area where she underwent short acting propofol anesthesia and the transesophageal probe was passed down the distal esophagus. The patient did become hypoxic. The probe was then removed. The patient recovered and then we again placed the probe down the distal esophagus without any further complications or difficulties. Images indicate no evidence of left atrial appendage thrombus. No evidence of left atrial thrombus. There was mild "smoke" formation of the left atrium. Left ventricular systolic function is estimated at approximately 45 to 50%. There was a bioprosthetic valve noted in the mitral valve position which showed no significant gradient and appears to be stable and functioning normally. There is also evidence of mild mitral valve regurgitation and moderate to severe tricuspid valve regurgitation. The aortic valve appears to be stable with only trivial aortic valve regurgitation. The left atrium appears to be dilated. There were no other difficulties or complications otherwise encountered. Patient tolerated the procedure well. The probe was then removed. The patient was given short acting propofol for the procedure. She will now be planned to undergo an ablation of her atrial flutter. MARYA
[2018-08-22] MEDS: Apixaban 5 MG TAB PO SCH (08:47)
[2018-08-22] MEDS: Ferrous Sulfate 325 MG TAB PO SCH (08:47)
[2018-08-22] MEDS: Magnesium Oxide 400 MG TAB PO SCH (08:50)
[2018-08-22] MEDS: Aspirin Chewable 81 MG TAB PO SCH (08:50)
[2018-08-22] MEDS: Cyanocobalamin (Vitamin B-12) 1,000 MCG TAB PO SCH (08:50)
[2018-08-22] MEDS: Allopurinol 100 MG TAB PO SCH (08:51)
--- NOTE | 2018-08-22 09:16 | EKG ---
Test Reason : PREOP Blood Pressure : / mmHG Vent. Rate : 079 BPM Atrial Rate : 079 BPM P-R Int : 000 ms QRS Dur : 138 ms QT Int : 432 ms P-R-T Axes : 000 067 143 degrees QTc Int : 495 ms Atrial Flutter with variable A-V block Left bundle branch block Abnormal ECG When compared with ECG of 19-AUG-2018 15:19, (Unconfirmed) Current undetermined rhythm precludes rhythm comparison, needs review Confirmed by LUCERO JOHNSTON, DR. Sanchez ([id number]) on 08/22/2018 9:15:55 AM Referred By: MILDRED Confirmed By:DR. Laura BARKER MD
--- NOTE | 2018-08-22 09:22 | EKG ---
Test Reason : S/P ABLATION Blood Pressure : / mmHG Vent. Rate : 064 BPM Atrial Rate : 064 BPM P-R Int : 000 ms QRS Dur : 134 ms QT Int : 474 ms P-R-T Axes : 092 071 149 degrees QTc Int : 489 ms Normal sinus rhythm Left bundle branch block Abnormal ECG When compared with ECG of 20-AUG-2018 14:40, (Unconfirmed) Previous ECG has undetermined rhythm, needs review Confirmed by LUCERO JOHNSTON, STraci ([id number]) on 08/22/2018 9:22:11 AM Referred By: MILDRED Confirmed By:DR. Laura BARKER MD
--- NOTE | 2018-08-22 11:00 | DIS ---
DATE OF ADMISSION: 08/18/2018 DATE OF DISCHARGE: 08/22/2018 PRIMARY CARE PHYSICIAN: Dr. Nova Yin. DISCHARGE DISPOSITION: Home. PRIMARY DISCHARGE DIAGNOSIS: New onset atrial flutter, status post transesophageal echocardiography and radiofrequency ablation. SECONDARY DISCHARGE DIAGNOSES: Morbid obesity with BMI of 43, hypertension, history of mitral valve replacement, history of liver cancer, gout, dyslipidemia, diabetes type 2, chronic diastolic heart failure stage C, and asymptomatic cholelithiasis. PRIMARY PROCEDURE/OPERATION: Transesophageal echocardiography, electrophysiologic study and ablation. RADIOLOGICAL INVESTIGATION: Chest x-ray, echocardiography showed EF 30% to 35%, moderate tricuspid regurgitation. Transesophageal echocardiography did not show any thrombus. SIGNIFICANT LABORATORY DATA: WBC 5.0, hemoglobin 10.9, platelet 154. INR 1.1. Sodium 138, creatinine 0.93, calcium 9.3. LFT normal. BNP 364. TSH 2.04. DISCHARGE MEDICATIONS: New medication: 1. Eliquis 5 mg p.o. b.i.d. 2. Cardizem CD 180 mg p.o. daily. Continue following medication: 1. Allopurinol 100 mg daily. 2. Aspirin 81 mg daily. 3. Vitamin D3 of 2000 units p.o. daily. 4. Vitamin B12 of 1000 mcg p.o. daily. 5. Ferrous sulfate 325 mg p.o. daily. 6. Magnesium 400 mg daily. 7. Toprol-XL 50 mg p.o. daily. 8. Zocor 20 mg p.o. at bedtime. CONTRAINDICATION: None. CODE STATUS: Full code. INPATIENT [employer] DRIVER: Dr. Kaiser was following while in hospital. Foster Care Social Worker was consulted while in hospital. TEST RESULT PENDING ON DISCHARGE: None. ALLERGIES: PENICILLIN. DISCHARGE PLAN: Posthospital, the patient will follow up with Dr. Kaiser in 1 week. The patient will follow up with Dr. Babcock in 1 week and primary care physician. HOSPITAL COURSE: A 72-year-old female with above-mentioned medical problem, who was admitted by Dr. Carmichael. Please see his H and P for further details. The patient was having new onset atrial flutter. The patient was admitted to telemetry floor. Her heart rate was controlled with Cardizem drip. Cardiology was consulted, and they recommended electrophysiology consultation. Echocardiography obtained, which showed low EF. The patient was evaluated by hammer adjuster, and they recommended EP study and ablation. While in hospital, YVONNE was done, which was negative for any thrombus and subsequently electrophysiologic study and ablation was performed. Above-mentioned medication was recommended by Cardiology. At this point, the patient is doing much better. She is asymptomatic. She wants to go home. She will follow up with Cardiology, hammer adjuster, and her primary care physician. I have seen and examined the patient at bedside today. Her vitals are normal. Her physical examination is normal. All new medication prescription sent to her pharmacy. Job ID: [id number]
[2018-08-22 12:29] VITALS: BP 116/81; TEMP 98.3
--- NOTE | 2018-08-24 10:14 | OP ---
DATE OF PROCEDURE: 08/21/2018 INDICATIONS FOR PROCEDURE: Atrial flutter. PROCEDURE PERFORMED: Supraventricular tachycardia ablation, left atrial pacing and recording, 2-dimensional mapping. MEDICATIONS: As per Anesthesia, no isoproterenol is infused. COMPLICATIONS: None. ESTIMATED BLOOD LOSS: Less than 5 mL. METHODS: After informed consent was obtained, the patient was brought to the electrophysiology laboratory. The patient was prepped and draped in the usual sterile fashion. Using lidocaine, skin overlying the right femoral vessels were locally anesthetized. A long J-wire was advanced to the superior vena cava and two 6-Irish sheaths were placed. A Ramp-1 sheath was then placed to the right atrium. All sheaths were aspirated and flushed. Two decapolar catheters were advanced through the 6-Irish sheaths, one was placed in the coronary sinus for direct left atrial pacing and recording. The other was placed at the His-bundle recording site for His-bundle electrogram and then moved to the right atrium for right atrial pacing and recording. An 8 mm mapping ablation catheter was placed through the long sheath and to the tricuspid valve anulus. Analysis of the underlying rhythm appears to be consistent with a CTI flutter and there even appears to be some entrainment. This patient is status post two mitral valve procedures. 2-dimensional mapping along the valve anulus area was performed and then radiofrequency applications were applied in a linear fashion from the ventricular aspect across the tricuspid valve along the cavotricuspid isthmus down toward the inferior vena cava in an attempt to terminate the flutter. A change in cycle length that was not seen despite a change in electrogram activation. Repeat evaluation suggests that the patient is now in an alternative atrial flutter circuit and a tachycardia. Pace termination of that tachycardia was attempted; however, that only accelerates her into at least 2 other atypical atrial flutters. Finally, a synchronized 200 joule cardioversion was performed, restoring her back to sinus mechanism. Pacing from the left atrium while mapping along the cavotricuspid isthmus suggests that perhaps bidirectional block has not been completely achieved and additional radiofrequency applications are applied until dual potential was seen along the ablation line. Next, pacing from the lateral right atrium demonstrates conduction delay to the coronary sinus from the lateral aspect of the ablation lesion set. The mapping catheter was moved to the ventricle and right ventricular pacing and recording was performed, demonstrating no evidence of VA conduction, after repeat mapping demonstrates that the line of block along the cavotricuspid isthmus appears to be holding, catheters were pulled, sheaths were pulled, and the patient was allowed to return to the room in good condition. FINDINGS: At baseline, the patient is in an atrial flutter with a cycle length of 253 milliseconds. V to V cycle length is 708 milliseconds. QRS duration is 142, QT interval is 412, HV interval measures 58 milliseconds, in sinus mechanism, no VA conduction is seen when pacing from the right ventricle, and no block below the His was seen and no accessory pathway of the atrioventricular type was seen when pacing from the right ventricle and recording in the left and the right atrium simultaneously. The underlying rhythm does indeed appear to be an atrial flutter, initially there appears entrainment consistent potentially involving the cavotricuspid isthmus; however, with ablation in that region, there is a change in activation without a change in cycle length and a loss of what appears to be entrainment suggesting of that another atrial flutter indeed present prior to her cardioversion. Once a bidirectional block is achieved, there is delay in double potential seen along the ablation lesion set. Twelve applications of radiofrequency energy were applied for total of 473 seconds. IMPRESSION: Successful ablation of the cavotricuspid isthmus; however, multiple atrial flutters were seen. In light of this patient's two operations for mitral valve disease, it is very likely that she will have multiple atrial flutters. She has an elevated CHADS-VASc score of 4 and should be on oral anticoagulation over the long-term. We will recommend seeing her back in followup in 6 weeks. She leaves the labs in sinus mechanism. Job ID: [id number]
--- NOTE | 2018-08-25 09:09 | CON ---
DATE OF CONSULTATION: 08/21/2018 This is dictated for Dr. Joce Branch, by Reyna Solitario PA-C. REASON FOR CONSULTATION: Atrial flutter. HISTORY OF PRESENT ILLNESS: Ms. Obrien is a pleasant 72-year-old woman, who presented to the emergency room with elevated heart rate and palpitations. She had first been told that her rate was elevated when seen her primary care provider, where her heart rate was 120 beats per minute. She was largely asymptomatic with this, but does report that she felt somewhat fatigued and odd for approximately the past month. She has no history of atrial arrhythmias best of her knowledge prior to this episode. In the emergency room, she was found to be in atrial flutter prompting EP consultation. Ms. Obrien today is feeling well. Her heart rates are controlled, but she does remain in atrial flutter. She denies any heart racing, palpitation, chest pain, pressure, syncope, near syncope, stroke, or stroke-like symptoms. Of note, she has had severe mitral valve disease requiring mitral valve replacement in 2008 with a porcine valve, which eventually failed in 2015, at which point it was once again replaced, but at this time with a bovine tissue valve in 2017. Since that time, she has been doing well. She does not recall any mention of prior Maze procedure at the time of her valve surgeries. REVIEW OF SYSTEMS: A 12-point review of systems was conducted and is negative except that listed above in the HPI. PAST MEDICAL HISTORY: 1. Hypertension. 2. Type 2 diabetes. 3. Severe mitral valve disease, status post replacement in 2008 with a porcine valve and more recently in 2017 with a bovine Guy valve using TAVR. 4. Hypercholesterolemia. 5. Liver cancer, remission. 6. Anemia. ALLERGIES: PENICILLINS. HOME MEDIATIONS: Include, 1. Mag-Ox 400 mg p.o. daily. 2. Ferrous sulfate 325 mg p.o. daily. 3. B12 1000 mcg p.o. daily. 4. Vitamin D3 2000 units daily. 5. Metoprolol succinate 50 mg daily. 6. Aspirin 81 mg daily. 7. Zyloprim 100 mg daily. 8. Zocor 20 mg at bedtime. PHYSICAL EXAMINATION: VITAL SIGNS: Most recent temperature 98.1, pulse is 89, blood pressure 139/82, respirations 18, and oxygen is 98% on room air. GENERAL: The patient is alert and oriented. Speech is clear. Affect is appropriate. She is in no apparent distress. Resting comfortably during the exam. HEENT: She is normocephalic and atraumatic. Sclerae anicteric. EMs are intact. Oral mucosa is moist and pink with adequate dentition. NECK: Supple without jugular venous distention. Thyroid is nonpalpable. HEART: Rate is irregularly irregular, but rate is controlled. PMI is nondisplaced. LUNGS: Clear to ausculation bilaterally without wheezes, crackles, or rhonchi. ABDOMEN: Obese, soft, and nontender without palpable masses and hepatojugular refluxes negative. EXTREMITIES: Warm and dry to touch without clubbing, cyanosis, or edema. NEUROLOGIC: Grossly intact and nonfocal. Gait was not assessed. LABORATORY DATA: Recent laboratory results were reviewed. Hematology is unremarkable. Chemistry; potassium 4.8., creatinine 0.93. GFR is 59. Liver enzymes are within normal limits. Troponin was negative. TSH 2.04. BNP on admission was 364. Echocardiogram on 08/20/2018 reveals an ejection fraction of 30% to 35% with restrictive filling pattern. Left atrium is auyp-wq-evynydrror dilated. Right atrium is mildly enlarged. Bioprosthetic mitral valve is seen with some regurgitation present. Moderate . Telemetry and EKGs reflect atrial flutter occasionally with RVR suggestive of typical and atypical atrial flutter, currently rate controlled off diltiazem drip. IMPRESSION: 1. Atrial flutter, newly diagnosed, suggestive of both typical and atypical morphologies. Rapid ventricular response controlled with diltiazem drip on admission. 2. [id number] score of 4 on the basis of female gender, advancing age, hypertension, and diabetes. Previously on therapeutic Lovenox, but transitioning to oral anticoagulation on Eliquis. 3. History of severe mitral disease, status post 2 prior valve replacements. 4. Newly diagnosed cardiomyopathy with severely reduced ejection fraction of 30 % to 35%. 5. Hypertension. 6. Obesity. RECOMMENDATIONS: Ms. Obrien is a very pleasant 72-year-old woman, who presents with newly diagnosed atrial arrhythmias, more recently found cardiomyopathy. For her atrial arrhythmias, we discussed treatment options including medical management, ablation, and cardioversion. At this point, my recommendation would be to move forward with a CTI ablation and restore normal sinus rhythm possibly the cardioversion, but long-term, I suspect that this will be an ongoing sanchez with atrial arrhythmias given her history of mitral valve disease and already seen atypical morphologies with her atrial flutter. I started her on oral anticoagulation with Eliquis 5 mg p.o. b.i.d., which should likely continue live-long to address her long-term stroke risk given her history of valve disease. We discussed risks, benefits, and alternatives to ablation, which she is wishing to proceed with to address right-sided flutter today. We will monitor her for recurrence as an outpatient for any additional atrial arrhythmias. For her newly diagnosed cardiomyopathy, I would recommend standard heart failure management by Cardiology and consideration of a LifeVest during her medical management period before she will be eligible for an ICD. Thank you for allowing me to participate in the care of this patient. Job ID: [id number]
== END 2018-08-22 12:24 | disposition home or self-care (01) | DRG 274 ==
LOC: SCSER 18:10 → 2NO 20:49
PROVIDERS: ADMIT Hospitalist; ATTEND Hospitalist
PROC: B24BZZ4 Ultrasonography of Heart with Aorta, Transesophageal (ICD-10-PCS; principal; 2018-08-18)
PROC: 02583ZZ Destruction of Conduction Mechanism, Percutaneous Approach (ICD-10-PCS; 2018-08-22)
PROC: 4A023FZ Measurement of Cardiac Rhythm, Percutaneous Approach (ICD-10-PCS; 2018-08-22)
PROC: 4A0234Z Measurement of Cardiac Electrical Activity, Percutaneous Approach (ICD-10-PCS; 2018-08-22)
PROC: 5A2204Z Restoration of Cardiac Rhythm, Single (ICD-10-PCS; 2018-08-22)
DX: I48.92 Unspecified atrial flutter (principal); I50.32 Chronic diastolic (congestive) heart failure; Z68.41 Body mass index [BMI] 40.0-44.9, adult; I48.91 Unspecified atrial fibrillation; E11.9 Type 2 diabetes mellitus without complications; E78.5 Hyperlipidemia, unspecified; M10.9 Gout, unspecified; I11.0 Hypertensive heart disease with heart failure; E66.01 Morbid (severe) obesity due to excess calories; Z90.710 Acquired absence of both cervix and uterus; Z85.05 Personal history of malignant neoplasm of liver; Z79.82 Long term (current) use of aspirin; Z88.0 Allergy status to penicillin; Z79.01 Long term (current) use of anticoagulants; Z95.2 Presence of prosthetic heart valve; Z87.891 Personal history of nicotine dependence
CPT/HCPCS: 36415; 36416; 71045; 80048; 80053; 83690; 83880; 84443; 84484; 85025; 85610; 85730; 92960; 93005; 93010; 93306; 93312; 93609; 93621; 93653; 96365; 96376; C1730; C1769; C2630; J1644; J1650; J1940; J2704; J3490

== ENCOUNTER 2018-09-21 09:16 | Outpatient (CLI) | payer MEDICARE, BC ==
--- NOTE | 2018-09-21 14:36 | MRI ---
MRI OF THE ABDOMEN WITHOUT AND WITH COTNRAST: COMPARISON: 07/16/[address] abdomen/pelvis 07/07/2018. HISTORY: Elevated ATP. Malignant neoplasm of the liver. TECHNIQUE: Multiplanar, multisequence MRI images were obtained of the abdomen without and with IV contrast. FINDINGS: There is abnormal low T1 and high T2 signal in the cesar hepatis region of the liver. This may repre sent either enlarged cesar hepatis lymph nodes or abnormality within the caudate lobe of the liver. Areas of susceptibility artifact in this region represent the calcifications seen on prior CT. This region is heterogeneous in appearance. There are 2 slightly more focal high T2 signal lesions in the central liver which have slightly increased in size measuring 1.3 cm in greatest dimension. The hig h T2 signal within the cesar hepatis region is stable in size measuring 5.4 cm in greatest dimension. There is mild biliary dilatation in the left lobe of the liver. No biliary dilatation is seen in t he right lobe of the liver. There is stable prominence of the common bile duct and pancreatic duct. However, this may be normal for a patient of this age. Two large gallstones are seen in the gallbladder. The kidneys, adrenal glands, spleen, and pancreas showed no focal abnormality. No retroperitoneal ad enopathy is seen. There is a small right pleural effusion. No marrow signal abnormality is present. IMPRESSION: 1. There may be slight enlargement of the abnormality in the cesar hepatis region of the liver. Thi s may represent an enlarged abnormal caudate lobe or enlarged lymph nodes in the region of cesar hepa tis which have become confluent within the liver. The change in size is minimal compared to the prio r examination. 2. Cholelithiasis. POS: [facility]
== END 2018-09-21 09:17 | disposition home or self-care (01) ==
LOC: SCSMRI 09:16
PROVIDERS: ATTEND Internal Medicine Hematology & Oncology
DX: C22.9 Malignant neoplasm of liver, not specified as primary or secondary (principal); R77.2 Abnormality of alphafetoprotein; R16.0 Hepatomegaly, not elsewhere classified; K80.20 Calculus of gallbladder without cholecystitis without obstruction
CPT/HCPCS: 74183; 82565

== ENCOUNTER 2019-03-24 08:52 | Inpatient (IN) | payer MEDICARE, BC ==
[2019-03-24] MEDS ORDERED: PROPOFOL 0 ML ONE (09:41)
[2019-03-24] MEDS ORDERED: PHENYLEPHRINE-NS 100 MCG/ML 10 ML SYRINGE ONE ×2 (09:41→10:21)
[2019-03-24] MEDS ORDERED: Fentanyl 100 MCG/2 ML VIAL ONE ×2 (09:41→13:18)
[2019-03-24] MEDS ORDERED: Propofol 500 MG/50 ML VIAL ONE (09:41)
[2019-03-24] MEDS ORDERED: PROPOFOL 200 MG/20 ML VIAL ONE (10:21)
[2019-03-24 10:37] LABS: INR-International Normal Ratio 2.6; PTT 30.6 SEC (22.9-36.1); Prothrombin Time 27.9 SEC (12.0-14.7)
[2019-03-24 10:49] LABS: Anion Gap 15 mmol/L (10-20); BUN (Urea Nitrogen) 39 mg/dL (9.8-20.1); Calc. Creatinine Clearance 97 mL/min (70-130); Carbon Dioxide 19 mmol/L (23-31); Chloride 110 mmol/L (98-107); Estimated GFR-MDRD 60; Glucose 116 mg/dL (83-110); Potassium 4.9 mmol/L (3.5-5.1); Sodium 139 mmol/L (136-145)
[2019-03-24 10:51] LABS: Hemoglobin 8.2 g/dL (12.0-16.0); Mean Corpuscular HGB CONC 32.9 g/dL (32.0-36.0); Mean Platelet Volume 10.4 fL (7.4-10.4); Platelet Count 109 thou/uL (130-400); RBC Distribution Width 19.4 % (11.5-14.5); Red Blood Cell (RBC) Count 2.41 mill/uL (4.20-5.40); White Blood Cell (WBC) Count 5.7 thou/uL (4.8-10.8)
[2019-03-24 10:55] LABS: #Eosinphils 0.1 thou/uL (0.0-0.7); #Lymphocytes 0.7 thou/uL (1.20-3.40); #Monocytes 0.6 thou/uL (0.11-0.59); #Neutrophils 4.3 thou/uL (1.40-6.50); %Lymphocytes 12.5 % (21.0-51.0); %Monocytes 10.1 % (0.0-10.0); %Neutrophils 75.4 % (42.0-75.0); Anisocytosis MODERATE=16-30 cells (100X) (0-5/hpf); Band 1 % (5-11); Hypochromia SLIGHT = 6-15 cells (100X) (0-5/hpf); Lymphocytes 12 % (21-51); MDiff Complete? YES; Monocytes 4 % (0-10); Myelocyte 1 % (0-0); Neutrophil 82 % (42-75); Nucleated RBC 1 % (0); Platelet Morphology Comment Appears Decreased; Polychromasia MODERATE = 3-4 cells (100X) (0-2/hpf)
[2019-03-24] MEDS ORDERED: Propofol 1,000 MG/100 ML VIAL IV ONE (13:18)
[2019-03-24] MEDS ORDERED: Clindamycin/D5W 900 mg/50 ml Premix Bag ONE (13:18)
[2019-03-24] MEDS ORDERED: PROPOFOL 20 ML ONE (13:18)
[2019-03-24] MEDS ORDERED: Levofloxacin 500 mg/D5W 100 ml Premix Bag ONE (13:22)
[2019-03-24] MEDS ORDERED: Iopamidol 370 76% 50 ML VIAL FS ONE (14:28)
[2019-03-24] MEDS ORDERED: Promethazine HCl 25 MG/ML VIAL IM PRN (16:11)
[2019-03-24] MEDS ORDERED: Promethazine HCl 25 MG/ML VIAL SLOW IVP PRN (16:11)
[2019-03-24] MEDS ORDERED: Ondansetron HCl/PF 4 MG/2 ML Vial IVP PRN (16:11)
--- NOTE | 2019-03-24 16:51 | RAD ---
XR Chest 1 View Portable HISTORY: Dyspnea COMPARISON: 08/18/2018 FINDINGS: Changes of median sternotomy are again seen. The heart size is enlarged. The aorta is tortuous. A le ft-sided pacemaker device has been placed in the interim. There is pulmonary vascular congestion. Patchy opacities are seen in the right lower and left upper lung. The opacity in the left upper lobe has a masslike appearance. A follow-up exam is recommended.
[2019-03-24] MEDS ORDERED: Furosemide 40 MG/4 ML VIAL SLOW IVP SCH (20:00)
--- NOTE | 2019-03-24 20:06 | PDOC.HHP ---
Hospitalist HPI - History of Present Illness fatigue History of Present Illness: This is a consultation note 73yo F w/ MHx of refractory atypical atrial flutter, mitral valve replacement x 2, and HCC currently on Lenvatinib presents for an elective biventricular pacemaker placement. tolerated the procedure well with minimal blood loss, but endorses fatigue for the past month since being started on lenvatinib. During the course of the treatment, had severe nose bleed for six hours. On encounter, lying comfortably in bed and has no complaints. Denies chest pain , palpitations, dyspnea, diarrhea, hematochezia, melena, hematuria. Hospitalist ROS - Review of Systems Constitutional: denies: fever, chills, sweats, weakness, malaise, other Eyes: denies: pain, vision change, conjunctivae inflammation, eyelid inflammation, redness, other (pale conjunctiva) ENT: denies: ear pain, ear discharge, nose pain, nose discharge, nose congestion , mouth pain, mouth swelling, throat pain, throat swelling, other Respiratory: denies: cough, dry, shortness of breath, hemoptysis, SOB with excertion, pleuritic pain, sputum, wheezing, other Cardiovascular: denies: chest pain, palpitations, orthopnea, paroxysmal noc. dyspnea, edema, light headedness, other Gastrointestinal: denies: nausea, vomiting, abdominal pain, diarrhea, constipation, melena, hematochezia, other Genitourinary: denies: dysuria, frequency, incontinence, hematuria, retention, other Musculoskeletal: denies: neck pain, shoulder pain, arm pain, back pain, hand pain, leg pain, foot pain, other Skin: denies: rash, lesions, darin, bruising, other Neurological: denies: weakness, numbness, incoordination, change in speech, confusion, seizures, other All other systems reviewed; all pertinent +/- noted in HPI/Subj Hospitalist History - Past Medical History Source: patient, old records Cardiac: reports: CHF, Valve insufficiency Pulmonary: reports: 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 Gastrointestinal: reports: no pertinent history Heme/Onc: reports: Anemia NOS, Cancer Hepatobiliary: reports: Other (HCC) Psych: reports: no pertinent history Musculoskeletal: reports: no pertinent history Rheumatologic: reports: no pertinent history Infectious Disease: reports: no pertinent history ENT: reports: no pertinent history Renal/: reports: no pertinent history Endocrine: reports: no pertinent history Dermatology: reports: no pertinent history - Past Surgical History Past Surgical History: reports: Hysterectomy, Other (mitral valve replacement x 2) - Family History Family History: reports: cardiac disorder - Social History Smoking Status: Former smoker (quit 10 years ago) Tobacco Type: cigarettes Alcohol: reports: Rare Drugs: reports: none Domestic Violence: Negative Activity level: independent ambulation - Exam General Appearance: NAD, awake alert Eye: PERRL, anicteric sclera ENT: normocephalic atraumatic, no oropharyngeal lesions, moist mucosa Neck: supple, symmetric, no JVD, no thyromegaly, no lymphadenopathy Heart: no gallops (mild tachycardia) Heart - other findings: mild tachycardia, normal rhythm.Incision over left thorax c/d/i,no hematoma Respiratory: CTAB, no wheezes, no rales, no ronchi, normal chest expansion, no tachypnea, normal percussion Gastrointestinal: soft, non-tender, non-distended, normal bowel sounds Extremities: no cyanosis, no clubbing Extremities - other findings: pitting edema to knee level Skin: normal turgor, no lesions, no rashes Neurological: cranial nerve grossly intact, normal sensation to touch, no weakness, no focal deficits, no new deficit Musculoskeletal: normal tone, normal strength, no muscle wasting Psychiatric: normal affect, normal behavior, A&O x 3 Hospitalist Results - Labs Result Diagrams: 03/24/19 10:01 03/24/19 10:01 Lab results: WBC 5.7 thou/uL (4.8-10.8) 03/24/19 10:01 Hgb 8.2 g/dL (12.0-16.0) L 03/24/19 10:01 Hct 24.9 % (36.0-47.0) L 03/24/19 10:01 MCV 104.0 fL (78.0-98.0) H 03/24/19 10:01 Plt Count 109 thou/uL (130-400) L 03/24/19 10:01 Neutrophils % 75.4 % (42.0-75.0) H 03/24/19 10:01 Band Neuts % (Manual) 1 % (5-11) L 03/24/19 10:01 Sodium 139 mmol/L (136-145) 03/24/19 10:01 Potassium 4.9 mmol/L (3.5-5.1) 03/24/19 10:01 Chloride 110 mmol/L (98-107) H 03/24/19 10:01 Carbon Dioxide 19 mmol/L (23-31) L 03/24/19 10:01 BUN 39 mg/dL (9.8-20.1) H 03/24/19 10:01 Creatinine 0.91 mg/dL (0.6-1.1) 03/24/19 10:01 Glucose 116 mg/dL (83-110) H 03/24/19 10:01 Calcium 8.0 mg/dL (7.8-10.44) 03/24/19 10:01 Hospitalist H&P A/P - Problem (1) Chronic hemorrhagic anemia Code(s): D50.0 - IRON DEFICIENCY ANEMIA SECONDARY TO BLOOD LOSS (CHRONIC) Status: Chronic - Plan Plan: -fatigue likely secondary to Lenvatinib side effect as well as blood loss -no acute anemia symptoms, suggestive of chronic course -elevated PT; Had severe prolonged nose bleed while receiving chemo; no record of CBC after nosebleed -CBC showing reduced HgB and RBC with elevated MCV, RDW, and neutrophil count, c /w reactive bone marrow -agree with 2 x PRBC and lasix once -repeat HgB after transfusion and in AM -If responds to transfusion and stable, may be discharged; otherwise, further workup of ongoing blood loss will be required -per nurse, cardiology planning to restart anticoagulation and antiplatelet in AM; consider discussing with oncology since Lenvatinib known to cause tumor hemorrhage and wound healing impairment -if discharged, advise prompt f/u for blood count as outpatient
[2019-03-24] MEDS: Clindamycin/D5W 600 MG in Premix Bag 1 BAG IVPB SCH (21:29)
[2019-03-24] MEDS: Atorvastatin Calcium 10 MG TAB PO SCH (23:25)
[2019-03-25 05:13] LABS: Anion Gap 12 mmol/L (10-20); BUN (Urea Nitrogen) 38 mg/dL (9.8-20.1); Calc. Creatinine Clearance 90 mL/min (70-130); Calcium 7.8 mg/dL (7.8-10.44); Carbon Dioxide 25 mmol/L (23-31); Chloride 108 mmol/L (98-107); Estimated GFR-MDRD 54; Glucose 110 mg/dL (83-110); Potassium 4.6 mmol/L (3.5-5.1); Sodium 140 mmol/L (136-145)
[2019-03-25] MEDS: Clindamycin/D5W 600 MG in Premix Bag 1 BAG IVPB SCH (05:18)
[2019-03-25 05:20] LABS: #Eosinphils 0.1 thou/uL (0.0-0.7); #Lymphocytes 0.6 thou/uL (1.20-3.40); #Monocytes 0.8 thou/uL (0.11-0.59); #Neutrophils 4.3 thou/uL (1.40-6.50); %Basophils 0.3 % (0.0-1.0); %Eosinophils 1.4 % (0.0-10.0); %Lymphocytes 10.9 % (21.0-51.0); %Monocytes 13.3 % (0.0-10.0); %Neutrophils 74.2 % (42.0-75.0); Hemoglobin 9.1 g/dL (12.0-16.0); Mean Corpuscular HGB CONC 33.4 g/dL (32.0-36.0); Mean Platelet Volume 9.3 fL (7.4-10.4); Platelet Count 98 thou/uL (130-400); RBC Distribution Width 17.2 % (11.5-14.5); Red Blood Cell (RBC) Count 2.67 mill/uL (4.20-5.40); White Blood Cell (WBC) Count 5.8 thou/uL (4.8-10.8)
--- NOTE | 2019-03-25 08:47 | RAD ---
Exam: Chest one view HISTORY:Status post pacemaker implant Comparison: 03/24/2019 FINDINGS: Cardiac silhouette:Cardiomegaly. Pacemaker: Left-sided transvenous pacemaker with lead positioned in right atrium, right ventricle and coronary sinus. Stent projects over the heart border. Sternotomy wires are noted. Aorta: Atherosclerosis Pulmonary vessels: Normal Costophrenic angles: Trace bilateral pleural effusions LUNGS: Persistent opacification in the right lower lobe. Improved aeration left perihilar region. Pneumothorax: None Osseous abnormalities: None IMPRESSION: 1. Improved aeration left lung. 2. Persistent opacification in the right lower lobe. 3. Atherosclerosis.
[2019-03-25] MEDS: Aspirin Chewable 81 MG TAB PO SCH (08:52)
[2019-03-25] MEDS: Magnesium Oxide 400 MG TAB PO SCH (08:52)
[2019-03-25] MEDS: Allopurinol 100 MG TAB PO SCH (08:52)
[2019-03-25] MEDS: Cyanocobalamin (Vitamin B-12) 1,000 MCG TAB PO SCH (08:52)
[2019-03-25] MEDS ORDERED: Ferrous Sulfate 325 MG TAB PO SCH (09:00)
--- NOTE | 2019-03-25 09:09 | PDOC.HOSPP ---
- Subjective Encounter Date: 03/25/19 Encounter Time: 07:30 Subjective: Overnight, received 2 PRBC units and responded . This morning, feels better and more energetic. Has no complaints and denies headache, change in vision, hematemesis, shortness of breath, chest pain, palpitations, abdominal pain, melena, hematochezia, external bleeding - Objective Vital Signs & Weight: Vital Signs (12 hours) Temp Pulse Resp BP Pulse Ox 03/25/19 07:44 98.4 F 104 H 20 121/62 94 L 03/25/19 04:34 98.6 F 104 H 18 114/55 L 96 03/25/19 01:35 97.7 F 104 H 20 124/60 97 03/24/19 22:55 97.7 F 103 H 18 141/62 H 98 Weight Weight 258 lb 14.4 oz I&O: 03/24/19 03/25/19 03/26/19 06:59 06:59 06:59 Intake Total 1260 Output Total 1350 Balance -90 Result Diagrams: 03/25/19 04:28 03/25/19 04:28 Radiology Reviewed by me: Yes Hospitalist ROS - Review of Systems Constitutional: denies: fever, chills, sweats, weakness, malaise, other Eyes: denies: pain, vision change, conjunctivae inflammation, eyelid inflammation, redness, other Respiratory: denies: cough, dry, shortness of breath, hemoptysis, SOB with excertion, pleuritic pain, sputum, wheezing, other Cardiovascular: denies: chest pain, palpitations, orthopnea, paroxysmal noc. dyspnea, edema, light headedness, other Gastrointestinal: denies: melena, hematochezia Genitourinary: denies: hematuria Skin: denies: rash, lesions, darin, bruising, other Neurological: denies: weakness, numbness, incoordination, change in speech, confusion, seizures, other - Medication Medications: Active Medications Generic Name Dose Route Start Last Admin Trade Name Freq PRN Reason Stop Dose Admin Allopurinol 100 mg 03/25/19 09:00 03/25/19 08:52 Zyloprim PO 100 mg DAILY SABRINA Administration Aspirin 81 mg 03/25/19 09:00 03/25/19 08:52 Aspirin Chewable PO 81 mg DAILY SABRINA Administration Atorvastatin Calcium 10 mg 03/24/19 21:00 03/24/19 23:25 Lipitor PO Not Given HS SABRINA Cholecalciferol 2,000 units 03/25/19 09:00 03/25/19 08:52 Vitamin D3 PO 2,000 units DAILY SABRINA Administration Cyanocobalamin 1,000 mcg 03/25/19 09:00 03/25/19 08:52 Vitamin B-12 PO 1,000 mcg DAILY SABRINA Administration Diltiazem HCl 180 mg 03/25/19 09:00 03/25/19 08:52 Cardizem Cd PO 180 mg DAILY SABRINA Administration Ferrous Sulfate 325 mg 03/25/19 09:00 03/25/19 08:53 Feosol PO 325 mg DAILY SABRINA Administration Magnesium Oxide 400 mg 03/25/19 09:00 03/25/19 08:52 Magnesium Oxide PO 400 mg DAILY SABRINA Administration Metoprolol Succinate 100 mg 03/25/19 09:00 03/25/19 08:52 Toprol Xl PO 100 mg DAILY SABRINA Administration - Exam General Appearance: NAD, awake alert Eye: PERRL Eye - other findings: pale sclera ENT - other findings: pale oral mucosa Heart - other findings: mild tachycardia, regular rate; right upper thorax incision wound c/d/i Respiratory: CTAB, no wheezes, no rales, no ronchi, normal chest expansion Gastrointestinal: soft, non-tender, non-distended Extremities - other findings: b/l LE edema up to knee level Neurological: cranial nerve grossly intact, normal sensation to touch, no weakness, no focal deficits, no new deficit Psychiatric: normal affect, normal behavior, A&O x 3 Hosp A/P (1) Chronic hemorrhagic anemia Code(s): D50.0 - IRON DEFICIENCY ANEMIA SECONDARY TO BLOOD LOSS (CHRONIC) Status: Chronic Plan: -s/p 2xPRBC -partially responded to transfusions; no overt bleeding -per nurse, planning to start antiplatelet and anticoagulation as well as lenvatinib -HgB q8h -discuss starting Lenvatinib with oncology -change ferrous sulfate to TID to aid with RBC production -monitor overt bleeding
[2019-03-25 12:15] LABS: Platelet Count 113 thou/uL (130-400)
[2019-03-25 12:16] LABS: Hemoglobin 9.8 g/dL (12.0-16.0)
[2019-03-25] MEDS: Ferrous Sulfate 325 MG TAB PO SCH ×2 (14:56→20:24)
[2019-03-25] MEDS: Clindamycin 150 MG CAP PO SCH ×2 (14:56→20:24)
[2019-03-25] MEDS: Rivaroxaban 10 MG TAB PO SCH (17:03)
--- NOTE | 2019-03-25 17:04 | PDOC.EP ---
- Subjective Date: 03/25/19 Time: 08:00 Interval History: follow up after BiV pacemaker. Admitted for blood transfusion for pre- existing anemia. Feels greatly improved today after transfusion. No cardiac complaints. - Review of Systems Constitutional: denies: chills, fever, malaise, sweats, weakness, other Respiratory: denies: cough, dry, hemoptysis, pleuritic pain, shortness of breath , SOB with excertion, sputum, wheezing, other Cardiology: denies: chest pain, edema, heart racing, light headedness, passing out Gastrointestinal: denies: abdominal pain, constipation, diarrhea Musculoskeletal: denies: unstable gait, falls, arm pain - Objective Allergies/Adverse Reactions: Allergies Allergy/AdvReac Type Severity Reaction Status Date / Time Penicillins Allergy Intermediate Hives Verified 03/23/19 12:44 Current Medications Allopurinol (Zyloprim) 100 mg PO DAILY [facility] Last Admin: 03/25/19 08:52 Dose: 100 mg Aspirin (Aspirin Chewable) 81 mg PO DAILY [facility] Last Admin: 03/25/19 08:52 Dose: 81 mg Atorvastatin Calcium (Lipitor) 10 mg PO HS [facility] Last Admin: 03/24/19 23:25 Dose: Not Given Cholecalciferol (Vitamin D3) 2,000 units PO DAILY [facility] Last Admin: 03/25/19 08:52 Dose: 2,000 units Clindamycin HCl (Cleocin) 600 mg PO TID [facility] Stop: 04/01/19 09:01 Last Admin: 03/25/19 14:56 Dose: 600 mg Cyanocobalamin (Vitamin B-12) 1,000 mcg PO DAILY [facility] Last Admin: 03/25/19 08:52 Dose: 1,000 mcg Diltiazem HCl (Cardizem Cd) 180 mg PO DAILY [facility] Last Admin: 03/25/19 08:52 Dose: 180 mg Ferrous Sulfate (Feosol) 325 mg PO TID [facility] Last Admin: 03/25/19 14:56 Dose: 325 mg Magnesium Oxide (Magnesium Oxide) 400 mg PO DAILY [facility] Last Admin: 03/25/19 08:52 Dose: 400 mg Metoprolol Succinate (Toprol Xl) 100 mg PO DAILY [facility] Last Admin: 03/25/19 08:52 Dose: 100 mg Lenvatinib 12 Mg ( (Lenvima)) 1 each PO DAILY [facility] Rivaroxaban (Xarelto) 10 mg PO 1700 [facility] Vital Signs & Weight: Vital Signs Temp Pulse Pulse Pulse Resp BP BP 03/25/19 15:09 98.4 F 81 18 03/25/19 11:40 109 H 91 119/57 L 120/77 03/25/19 11:15 98.0 F 104 H 22 H 03/25/19 07:45 03/25/19 07:44 98.4 F 104 H 20 BP Pulse Ox 03/25/19 15:09 120/59 L 93 L 03/25/19 11:40 03/25/19 11:15 112/56 L 95 03/25/19 07:45 94 L 03/25/19 07:44 121/62 94 L Weight 258 lb 14.4 oz I/O: I/O 03/24/19 03/25/19 03/26/19 06:59 06:59 06:59 Intake Total 1260 Output Total 1350 Balance -90 - Physical Exam General: alert & oriented x3, appears well, no apparent distress, speech clear HEENT: mucus membranes moist, normocephaly, EOMI. negative: jaundice Neck: supple neck, midline trachea, no JVD/HJR Cardiology: regular rate and rhythm, no murmur, regular rate, regular rhythm Lungs: clear to auscultation, normal breath sounds, no wheeze, rales, rhonchi Neurology: cranial nerve 2-12 intact, no lateralizing findings Abdomen: unremarkable, active bowel sounds, no hepatosplenomegaly Extremities: dry, strong pulses, warm Skin: device site stable w/o swelling, left sided device. negative: bruising, drainage, erosion - Labs Result Diagrams: 03/25/19 12:06 03/25/19 04:28 - EKG Interpretation EKG shows: Sinus rhythm - Device Device: biventricular, pacemaker Device Result: [employer] - Assessment/Plan Assessment/Plan: 1. Atrial arrhythmias 2. OAC on xarelto 3. Obesity 4. Hepatocellular carcinoma 5. Anemia 6. LBBB 7. Prolonged QT 8. Mitral valve disease 9. Cardiomyopathy, attributed to RVR with A Fib s/p [employer] pacemaker with limited AAD options and LBBB prompting [employer] pacemaker implant in anticipation of requiring AV node ablation long goods drier. Device function is normal. CXR stable. Continue post implant antibiotics as prescribed. Hospitalist to manage medical issues. OK for DC by EP. wound check in 2 weeks
[2019-03-25] MEDS: Atorvastatin Calcium 10 MG TAB PO SCH (20:24)
[2019-03-26 06:45] LABS: Hemoglobin 8.2 g/dL (12.0-16.0); Mean Corpuscular HGB CONC 31.7 g/dL (32.0-36.0); Mean Corpuscular Hemoglobin 31.6 pg (27.0-31.0); Mean Corpuscular Volume 99.9 fL (78.0-98.0); Platelet Count 91 thou/uL (130-400); RBC Distribution Width 17.2 % (11.5-14.5); Red Blood Cell (RBC) Count 2.59 mill/uL (4.20-5.40); White Blood Cell (WBC) Count 5.5 thou/uL (4.8-10.8)
[2019-03-26] MEDS: Aspirin Chewable 81 MG TAB PO SCH (08:57)
[2019-03-26] MEDS: Allopurinol 100 MG TAB PO SCH (08:57)
[2019-03-26] MEDS: Clindamycin 150 MG CAP PO SCH ×3 (08:58→20:28)
[2019-03-26] MEDS: Cyanocobalamin (Vitamin B-12) 1,000 MCG TAB PO SCH (08:58)
[2019-03-26] MEDS: Magnesium Oxide 400 MG TAB PO SCH (08:58)
[2019-03-26] MEDS: Ferrous Sulfate 325 MG TAB PO SCH ×3 (08:58→20:29)
--- NOTE | 2019-03-26 09:14 | PDOC.HOSPP ---
- Subjective Encounter Date: 03/26/19 Encounter Time: 08:00 Subjective: no overnight events. This morning, has no complaints and feels more energized - Objective Vital Signs & Weight: Vital Signs (12 hours) Temp Pulse Resp BP Pulse Ox 03/26/19 07:50 97.7 F 103 H 16 119/59 L 93 L 03/26/19 03:26 97.6 F 102 H 20 110/56 L 95 Weight Weight 256 lb 3.2 oz I&O: 03/25/19 03/26/19 03/27/19 06:59 06:59 06:59 Intake Total 1260 1140 Output Total 1350 1550 Balance -90 -410 Result Diagrams: 03/26/19 06:34 03/25/19 04:28 Hospitalist ROS - Review of Systems Constitutional: denies: fever, chills, sweats, weakness, malaise, other Respiratory: denies: cough, dry, shortness of breath, hemoptysis, SOB with excertion, pleuritic pain, sputum, wheezing, other Cardiovascular: reports: edema. denies: chest pain, palpitations, orthopnea, paroxysmal noc. dyspnea, light headedness, other Gastrointestinal: reports: constipation. denies: nausea, vomiting, abdominal pain, diarrhea, melena, hematochezia Genitourinary: denies: dysuria, frequency, hematuria Skin: denies: rash, lesions, darin, bruising, other Neurological: denies: weakness, numbness, incoordination, change in speech, confusion, seizures, other - Medication Medications: Active Medications Generic Name Dose Route Start Last Admin Trade Name Crow PRN Reason Stop Dose Admin Allopurinol 100 mg 03/25/19 09:00 03/26/19 08:57 Zyloprim PO 100 mg DAILY [facility] Administration Aspirin 81 mg 03/25/19 09:00 03/26/19 08:57 Aspirin Chewable PO 81 mg DAILY [facility] Administration Atorvastatin Calcium 10 mg 03/24/19 21:00 03/25/19 20:24 Lipitor PO 10 mg HS [facility] Administration Cholecalciferol 2,000 units 03/25/19 09:00 03/26/19 08:57 Vitamin D3 PO 2,000 units DAILY [facility] Administration Clindamycin HCl 600 mg 03/25/19 15:00 01/10/20 08:58 Cleocin PO 04/01/19 09:01 600 mg TID [facility] Administration Cyanocobalamin 1,000 mcg 03/25/19 09:00 03/26/19 08:58 Vitamin B-12 PO 1,000 mcg DAILY [facility] Administration Diltiazem HCl 180 mg 03/25/19 09:00 03/26/19 08:58 Cardizem Cd PO 180 mg DAILY [facility] Administration Ferrous Sulfate 325 mg 03/25/19 15:00 03/26/19 08:58 Feosol PO 325 mg TID [facility] Administration Magnesium Oxide 400 mg 03/25/19 09:00 03/26/19 08:58 Magnesium Oxide PO 400 mg DAILY [facility] Administration Metoprolol Succinate 100 mg 03/25/19 09:00 03/26/19 08:58 Toprol Xl PO 100 mg DAILY [facility] Administration Rivaroxaban 10 mg 03/25/19 17:00 03/25/19 17:03 Xarelto PO 10 mg 1700 [facility] Administration - Exam General Appearance: NAD, awake alert Eye: PERRL Heart: RRR, no murmur, no gallops, no rubs, normal peripheral pulses Respiratory: CTAB, no wheezes, no rales, no ronchi, normal chest expansion, no tachypnea, normal percussion Gastrointestinal: soft, non-tender, non-distended, normal bowel sounds, no palpable masses, no splenomegaly, no bruit Extremities - other findings: lower extremity edema to knee level Neurological: cranial nerve grossly intact, normal sensation to touch, no weakness, no focal deficits, no new deficit Hosp A/P (1) Chronic hemorrhagic anemia Code(s): D50.0 - IRON DEFICIENCY ANEMIA SECONDARY TO BLOOD LOSS (CHRONIC) Status: Chronic Plan: -HgB decreased by more than 1g overnight; no over bleeding -BUN > Cr > 20 despite being on fluids for the past several days and no signs of hypovolemia -Per patient, last colonoscopy in 2012 normal -no overt bleeding -may be due to lenvatinib but have to rule out active processes Plan: -LDH, Hapto, reticulocyte count, FOBT -if FOBT +ve, will consult GI -HgB q8h; supplement if <7.0 (2) New onset atrial flutter Code(s): I48.92 - UNSPECIFIED ATRIAL FLUTTER Status: Acute Plan: refractory atypical aflt s/p biventricular pacemaker -wound c/d/i -on aspirin and OAC
[2019-03-26 10:45] LABS: Bilirubin, Direct 0.2 mg/dL (0.1-0.3); Bilirubin, Total 0.5 mg/dL (0.2-1.2)
[2019-03-26 12:15] LABS: Hemoglobin 8.5 g/dL (12.0-16.0); Reticulocyte Count 8.5 % (0.5-1.5)
--- NOTE | 2019-03-26 13:03 | PDOC.EP ---
- Subjective Date: 03/26/19 Time: 13:01 Interval History: follow up after BiV pacemaker. Admitted for blood transfusion for pre- existing anemia. Feels greatly improved today after transfusion but Hgb did drop >1 overnight. No cardiac complaints. - Review of Systems ROS unobtainable: due to endotracheal tube, due to mental status Constitutional: denies: chills, fever, malaise, sweats, weakness, other Respiratory: denies: cough, dry, hemoptysis, pleuritic pain, shortness of breath , SOB with excertion, sputum, wheezing, other Cardiology: denies: chest pain, edema, heart racing, light headedness, paroxysmal noc. dyspnea, orthopnea, palpitations, passing out, pleuritic pain, pressure, swelling, other Gastrointestinal: denies: abdominal pain, constipation, diarrhea, hematochezia, melena, nausea, vomitting, other Musculoskeletal: denies: unstable gait, falls, neck pain, shoulder pain, arm pain, hand pain, leg pain, foot pain, other - Objective Allergies/Adverse Reactions: Allergies Allergy/AdvReac Type Severity Reaction Status Date / Time Penicillins Allergy Intermediate Hives Verified 03/23/19 12:44 Current Medications Allopurinol (Zyloprim) 100 mg PO DAILY [facility] Last Admin: 03/26/19 08:57 Dose: 100 mg Aspirin (Aspirin Chewable) 81 mg PO DAILY [facility] Last Admin: 03/26/19 08:57 Dose: 81 mg Atorvastatin Calcium (Lipitor) 10 mg PO HS [facility] Last Admin: 03/25/19 20:24 Dose: 10 mg Cholecalciferol (Vitamin D3) 2,000 units PO DAILY [facility] Last Admin: 03/26/19 08:57 Dose: 2,000 units Clindamycin HCl (Cleocin) 600 mg PO TID [facility] Stop: 04/01/19 09:01 Last Admin: 03/26/19 08:58 Dose: 600 mg Cyanocobalamin (Vitamin B-12) 1,000 mcg PO DAILY [facility] Last Admin: 03/26/19 08:58 Dose: 1,000 mcg Diltiazem HCl (Cardizem Cd) 180 mg PO DAILY [facility] Last Admin: 03/26/19 08:58 Dose: 180 mg Ferrous Sulfate (Feosol) 325 mg PO TID [facility] Last Admin: 03/26/19 08:58 Dose: 325 mg Magnesium Oxide (Magnesium Oxide) 400 mg PO DAILY [facility] Last Admin: 03/26/19 08:58 Dose: 400 mg Metoprolol Succinate (Toprol Xl) 100 mg PO DAILY [facility] Last Admin: 03/26/19 08:58 Dose: 100 mg Lenvatinib 12 Mg ( (Lenvima)) 1 each PO DAILY [facility] Rivaroxaban (Xarelto) 10 mg PO 1700 [facility] Last Admin: 03/25/19 17:03 Dose: 10 mg Vital Signs & Weight: Vital Signs Temp Pulse Pulse Pulse Resp BP BP 03/26/19 11:19 97.6 F 101 H 16 03/26/19 10:05 107 H 103 H 116/57 L 105/53 L 03/26/19 07:50 97.7 F 103 H 16 03/26/19 03:26 97.6 F 102 H 20 BP Pulse Ox Pulse Ox Pulse Ox 03/26/19 11:19 116/58 L 96 03/26/19 10:05 93 L 95 03/26/19 07:50 119/59 L 93 L 03/26/19 03:26 110/56 L 95 Weight 256 lb 3.2 oz I/O: I/O 03/25/19 03/26/19 03/27/19 06:59 06:59 06:59 Intake Total 1260 1140 Output Total 1350 1550 Balance -90 -410 - Quality Measures Condition: Atrial Fibrillation/Flutter (hx or current) CV meds: Xarelto: Yes (reduced dose at 10mg QD with anemia) - Physical Exam General: alert & oriented x3, appears well, no apparent distress, speech clear, affect appropriate HEENT: mucus membranes moist, normocephaly Neck: supple neck, midline trachea, no JVD/HJR, no masses, no bruit, no lymphadenopathy, no thromegaly Cardiology: no murmur, PMI nondisplaced, tachycardia (HR 80-110) Lungs: clear to auscultation, normal breath sounds, no wheeze, rales, rhonchi Neurology: cranial nerve 2-12 intact, grossly intact, no lateralizing findings Abdomen: unremarkable, active bowel sounds, no pulsations/bruits Extremities: dry, strong pulses, warm Skin: bruising, left sided device, swelling. negative: drainage, erosion, hematoma - Labs Result Diagrams: 03/26/19 11:54 03/25/19 04:28 - EKG Interpretation EKG Method: Telemetry EKG shows: Atrial fibrillation, Atypical atrial flutter - Assessment/Plan Assessment/Plan: 1. Atrial arrhythmias 2. OAC on xarelto 3. Obesity 4. Hepatocellular carcinoma 5. Anemia 6. LBBB 7. Prolonged QT 8. Mitral valve disease 9. Cardiomyopathy, attributed to RVR with A Fib s/p [employer] pacemaker with limited AAD options and LBBB prompting [employer] pacemaker implant in anticipation of requiring AV node ablation group home. HR occasionally exceeds 100bpm VSR pacing seen at times. Added digoxin for improved rate control. Already on Toprol Xl 100mg QD and Cartia 180mg QD. BP borderline low. Hgb drop is seen overnight with no overt bleeding. FOB ordered. per hospitalist, GI consult if FOB +. Device function is normal. CXR stable. Continue post implant antibiotics as prescribed. Hospitalist to manage medical issues. wound check in 2 weeks
[2019-03-26] MEDS ORDERED: Digoxin 0.125 MG TAB PO SCH (13:33)
[2019-03-26 14:23] VITALS: BMI 44.2
--- NOTE | 2019-03-26 15:21 | EKG ---
Test Reason : PREOP Blood Pressure : / mmHG Vent. Rate : 084 BPM Atrial Rate : 208 BPM P-R Int : 000 ms QRS Dur : 144 ms QT Int : 420 ms P-R-T Axes : 000 071 206 degrees QTc Int : 496 ms Atrial fibrillation Left bundle branch block Abnormal ECG When compared with ECG of 21-AUG-2018 14:52, Atrial fibrillation has replaced Sinus rhythm Inverted T waves have replaced nonspecific T wave abnormality in Inferior leads Confirmed by DR. Joelle JAIME ([id number]) on 03/26/2019 3:20:57 PM Referred By: [facility] Confirmed By:DR. Joelle JAIME
--- NOTE | 2019-03-26 15:24 | EKG ---
Test Reason : Blood Pressure : / mmHG Vent. Rate : 083 BPM Atrial Rate : 094 BPM P-R Int : 000 ms QRS Dur : 138 ms QT Int : 418 ms P-R-T Axes : 000 054 193 degrees QTc Int : 491 ms Wide QRS rhythm Left bundle branch block Abnormal ECG When compared with ECG of 24-MAR-2019 10:31, (Unconfirmed) Wide QRS rhythm has replaced Atrial fibrillation Confirmed by DR. Joelle JAIME ([id number]) on 03/26/2019 3:24:34 PM Referred By: [facility] Confirmed By:DR. Joelle JAIME
[2019-03-26] MEDS: Rivaroxaban 10 MG TAB PO SCH (16:51)
[2019-03-26 19:29] LABS: Hemoglobin 8.5 g/dL (12.0-16.0)
[2019-03-26] MEDS: Bisacodyl 5 MG TAB PO PRN (20:28)
[2019-03-26] MEDS: Atorvastatin Calcium 10 MG TAB PO SCH (20:28)
[2019-03-26] MEDS: LENVATINIB PO SCH ×2 (20:29→20:30)
[2019-03-27 04:42] LABS: Hemoglobin 7.9 g/dL (12.0-16.0)
[2019-03-27] MEDS: Aspirin Chewable 81 MG TAB PO SCH (08:27)
[2019-03-27] MEDS: Allopurinol 100 MG TAB PO SCH (08:27)
[2019-03-27] MEDS: Clindamycin 150 MG CAP PO SCH ×2 (08:28→15:49)
[2019-03-27] MEDS: Cyanocobalamin (Vitamin B-12) 1,000 MCG TAB PO SCH (08:28)
[2019-03-27] MEDS: Ferrous Sulfate 325 MG TAB PO SCH ×2 (08:29→15:49)
[2019-03-27] MEDS: Magnesium Oxide 400 MG TAB PO SCH (08:29)
[2019-03-27] MEDS: Bisacodyl 5 MG TAB PO PRN (08:30)
[2019-03-27] MEDS ORDERED: LENVATINIB 4 MG PO SCH (09:00)
[2019-03-27] MEDS ORDERED: Digoxin 0.125 MG TAB PO SCH (09:00)
[2019-03-27] MEDS ORDERED: Folic Acid 1 MG TAB PO SCH (09:00)
[2019-03-27] MEDS ORDERED: Furosemide 40 MG TAB PO SCH (12:30)
[2019-03-27 15:49] VITALS: TEMP 97.9
[2019-03-27 15:53] VITALS: BP 115/56
--- NOTE | 2019-03-27 20:33 | DIS ---
DATE OF ADMISSION: 03/24/2019 DATE OF DISCHARGE: 03/27/2019 HOSPITAL COURSE: Ms. Obrien is a 73-year-old female with a medical history of refractory atypical atrial flutter, mitral valve replacement x2, and hepatocellular carcinoma, currently on lenvatinib. She presented for an elective biventricular pacemaker placement. She tolerated the procedure well with minimal blood loss, but after the procedure, she endorsed fatigue for the past month since being started on lenvatinib, so she was admitted into the inpatient in order to workup for anemia. During the workup, she was found to have a low hemoglobin and was transfused with 3 units of PRBCs. She was also found to be folate deficient and was supplemented with folate. On the day of discharge, the patient was hemodynamically stable and had no complaints. She denied chest pain, fatigue, palpitations, dyspnea, diarrhea, hematochezia, melena, or hematuria. DISCHARGE PHYSICAL EXAMINATION: VITAL SIGNS: Unremarkable. GENERAL: She was in no apparent distress. Awake and alert. ENT: Normocephalic and atraumatic. No oropharyngeal lesions. Oral mucosa was moist. HEART: Regular rate and rhythm. No murmurs. RESPIRATORY: Clear to auscultation bilaterally. No wheezes. No rales. No rhonchi. Normal chest expansion. GASTROINTESTINAL: Soft, nontender, and nondistended. Normal bowel sounds. EXTREMITIES: No cyanosis. No clubbing. IMPRESSION AND PLAN: This is a patient who came in for an elective biventricular pacemaker placement and was found to have chronic anemia, most likely due to her oncology treatment with lenvatinib and folic acid deficiency. 1. Chronic anemia. The patient presented with dropped hemoglobin and received 2 units of packed RBCs. She remained stable overnight and her hemoglobin on the second day of hospitalization was stable as well. FOBT was positive so was scheduled with outpatient GI appointment. The patient was also instructed to discuss combination of medications namely antiplatelets, anticoagulants, and lenvatinib with her oncologist and field control inspector considering her chronic anemia. 2. Refractory atrial flutter. The patient is status post biventricular pacemaker placement. On exam prior to discharge, the wound was clean and did not show signs of internal hematoma. Per Cardiology, the patient was discharged on aspirin and oral anticoagulant. The patient is scheduled for a Cardiology outpatient appointment 2 weeks after discharge. Job ID: [id number] [facility]
== END 2019-03-27 16:00 | disposition home or self-care (01) | DRG 243 ==
LOC: CCL 08:52 → 2NO 18:01
PROVIDERS: ADMIT Internal Medicine Cardiovascular Disease; ATTEND Internal Medicine
PROC: 0JPT0PZ Removal of Cardiac Rhythm Related Device from Trunk Subcutaneous Tissue and Fascia, Open Approach (ICD-10-PCS; principal; 2019-03-24)
PROC: 0JH607Z Insertion of Cardiac Resynchronization Pacemaker Pulse Generator into Chest Subcutaneous Tissue and Fascia, Open Approach (ICD-10-PCS; 2019-03-24)
PROC: 02HK3JZ Insertion of Pacemaker Lead into Right Ventricle, Percutaneous Approach (ICD-10-PCS; 2019-03-24)
PROC: 02PA3MZ Removal of Cardiac Lead from Heart, Percutaneous Approach (ICD-10-PCS; 2019-03-24)
PROC: 02H63JZ Insertion of Pacemaker Lead into Right Atrium, Percutaneous Approach (ICD-10-PCS; 2019-03-24)
PROC: 02HL3JZ Insertion of Pacemaker Lead into Left Ventricle, Percutaneous Approach (ICD-10-PCS; 2019-03-24)
PROC: 02H63JZ Insertion of Pacemaker Lead into Right Atrium, Percutaneous Approach (ICD-10-PCS; 2019-03-24)
PROC: 8E0W3EZ Fluorescence Guided Procedure of Trunk Region, Percutaneous Approach (ICD-10-PCS; 2019-03-24)
PROC: 30233N1 Transfusion of Nonautologous Red Blood Cells into Peripheral Vein, Percutaneous Approach (ICD-10-PCS; 2019-03-24)
DX: I48.4 Atypical atrial flutter (principal); C22.0 Liver cell carcinoma; Z68.41 Body mass index [BMI] 40.0-44.9, adult; I50.9 Heart failure, unspecified; D50.0 Iron deficiency anemia secondary to blood loss (chronic); E66.9 Obesity, unspecified; I44.7 Left bundle-branch block, unspecified; I45.81 Long QT syndrome; I42.9 Cardiomyopathy, unspecified; Z95.2 Presence of prosthetic heart valve; Z79.01 Long term (current) use of anticoagulants; Z90.710 Acquired absence of both cervix and uterus; Z87.891 Personal history of nicotine dependence
CPT/HCPCS: 33208; 33225; 36415; 36416; 36430; 71045; 76942; 80048; 80053; 82247; 82248; 82274; 82607; 82728; 82746; 83010; 83540; 83550; 83615; 85014; 85018; 85025; 85027; 85046; 85610; 85730; 86850; 86870; 86900; 86901; 86905; 86922; 93005; 93010; 93798; C1769; C1882; C1898; C1900; J1940; J1956; J2704; J3010; J3490; P9016; Q9967